=== PATIENT | male | born 1950 | race Caucasian/White ===

== ENCOUNTER → 2016-08-02 | Outpatient (CLI) | payer BC, MEDICARE ==
[~2016-08-02] MED LIST: METO-272 PO; MV M PO; NIAC1CAP PO; OMEG1CAP24 PO; OMEP20CA12 PO; PRD20T PO; RAMI5CAP PO; SULF-222 PO
--- NOTE | 2016-08-02 11:27 | Diagnostic Imaging Report ---
PROCEDURE: MR imaging cervical spine without contrast. TECHNIQUE: Multiplanar, multisequence MR imaging of the cervical spine was performed without contrast. INDICATION: Chronic neck pain extending to right shoulder. FINDINGS: Sagittal reformatted images show good alignment of the vertebral bodies. Body height is well maintained. Marrow signal is normal throughout the cervical spine. The atlantoaxial joint is in good alignment. The C2-C3, C3-C4 and C4-C5 disc spaces appear normal. Facets appear normal. C5-C6 shows mild settling of disc space. There is broad-based disc bulge with mild hypertrophic bony endplate changes. This is causing mild broad-based ventral extradural defect with AP central canal measuring approximately 7 mm. This is causing minimal encroachment upon the lateral recesses and neural foramen. The C6-C7 shows settling of disc space with broad-based disc bulge and hypertrophic endplate changes causing moderate encroachment upon the lateral recess and neural foramen on the right. C7-T1 appears normal. The cervical cord appears normal with no increased T2 signal. Central canal is not dilated. The paraspinal soft tissues are normal. IMPRESSION: Degenerative cervical disc disease with hypertrophic lipping of the endplates. Mild central canal narrowing with moderate encroachment upon the right lateral recess and neural foramen at C6-C7. Dictated by: Dictated on workstation # [id number]
== END ==
LOC: RAD 10:13
PROVIDERS: ATTEND Orthopaedic Surgery
DX: M54.12 Radiculopathy, cervical region (principal)
CPT/HCPCS: 72141

== ENCOUNTER 2017-04-06 10:04 | Outpatient (CLI) | payer MEDICARE, OTHER ==
[~2017-04-06] VITALS: Ht 190.5 cm; Wt 106.6 kg
[~2017-04-06 10:04] MED LIST changes: +ALFU10TA11 PO; +BACL10TA PO; +FLAX1000 PO; +HYDR-3812 PO; +METF500T4 PO; +METO-370 PO
== END 2017-04-06 10:30 ==
LOC: PREOP 10:04
PROVIDERS: ATTEND Orthopaedic Surgery
DX: Z01.818 Encounter for other preprocedural examination (principal); M75.101 Unspecified rotator cuff tear or rupture of right shoulder, not specified as traumatic; G56.21 Lesion of ulnar nerve, right upper limb

== ENCOUNTER 2017-04-08 10:28 | Day surgery (SDC) | payer MEDICARE, OTHER ==
--- NOTE | 2017-04-06 06:20 | HISTORY AND PHYSICAL ---
DATE OF SERVICE: ADMISSION HISTORY AND PHYSICAL DATE OF ADMISSION: 04/08/2017. LAST FOUR SOCIAL SECURITY: 8534 REASON FOR ADMISSION: This will be for outpatient surgery on 04/08/2017 for right shoulder arthroscopy, rotator cuff repair and right cubital tunnel release. HISTORY OF PRESENT ILLNESS: The patient is a 67-year-old right hand dominant gentleman with complaints of right shoulder pain. He reports pain with overhead activities. He reports weakness. He reports that he had arm pain prior to his cervical fusion, which resolved, but he has continued to have shoulder pain. He complains of paresthesias in his ring and small fingers. He underwent an EMG, which showed evidence of a cubital tunnel syndrome. Due to functional impairment and failure to improve with conservative measures, the patient has elected to proceed with surgical intervention. REVIEW OF SYSTEMS: No chest pain. No shortness of breath. No dysuria. PAST MEDICAL HISTORY: Reflux, hypertension, headaches and arthritis. PAST SURGICAL HISTORY: Cholecystectomy, shoulder arthroscopy, heart catheterization, left clavicle, left foot. FAMILY HISTORY: Significant for cardiovascular disease. PRIMARY CARE PROVIDER: Dr. Jose Luis Pace. MEDICATIONS: Omeprazole, ramipril, metoprolol, alfuzosin, metformin, baclofen, hydrocodone, Medrol. ALLERGIES: TOLECTIN. SOCIAL HISTORY: The patient drinks alcohol socially. Denies tobacco use. PHYSICAL EXAMINATION: GENERAL: The patient is well developed, well nourished, in no acute distress. HEENT: Normocephalic, atraumatic. Pupils are equal, round and reactive to light. Oropharynx is clear. NECK: Supple with no lymphadenopathy. LUNGS: Clear to auscultation bilaterally. HEART: Regular rate and rhythm. ABDOMEN: Soft, nontender, nondistended. EXTREMITIES: The right upper extremity demonstrates a positive elbow flexion test. He has a positive Tinel's at the cubital tunnel with decreased sensation in an ulnar distribution. He has a positive Neer's and positive Garcia sign, weakness with abduction and external rotation. Active forward elevation of the right shoulder is 170 degrees, external rotation is 70 degrees, internal rotation is 60 degrees. IMPRESSION: 1. Right shoulder rotator cuff tear. 2. Right cubital tunnel syndrome. PLAN: Procedures: Right shoulder arthroscopy with rotator cuff repair and right cubital tunnel release. The risks, benefits, options, ramifications and recovery have been discussed at length with the patient. He understands and wishes to proceed. Job ID: [id number] DocumentID: [id number] Dictated Date: 03/30/2017 11:29:12 Roofer Metal Date: 03/30/2017 11:55:42 Dictated By: NICOLETTE COELHO MD
[~2017-04-08] VITALS: Ht 190.5 cm; Wt 106.6 kg
[~2017-04-08 10:28] MED LIST changes: +BUPIVACAINE 0.25% 30 ML (SENSORCAINE) VIAL ONE; +MIDAZOLAM 2 MG/2 ML (VERSED) VIAL ONE; +fentaNYL INJECTION 100 MCG/2 ML AMP ONE
--- OUTSIDE RECORDS SUMMARY | 2017-04-08 10:31 | XMS REPORT | Continuity of Care Document ---
Author Author [facility] Organization [facility] Address Unknown Phone Unavailable Allergies Active Description Code Type Severity Reaction Onset Reported/Identified Relationship to Patient Clinical Status Yes tolmetin sodium [id number] Drug Allergy Severe ANAPHYLAXIS 02/04/2013 Medications Problems Date Dx Coded Attending Type Code Diagnosis Diagnosed By 02/04/2013 RONAL SOLANO, LANCE T Ot 698.9 PRURITIC DISORDER NOS 02/04/2013 LANCE VILLEDA MD Ot 785.1 PALPITATIONS 02/04/2013 LANCE VILLEDA MD Ot 995.3 ALLERGY, UNSPECIFIED 02/04/2013 LANCE VILLEDA MD T Ot E000.8 OTHER EXTERNAL CAUSE STATUS 02/04/2013 RONAL SOLANO, LANCE T Ot E849.0 ACCIDENT IN HOME 02/04/2013 LANCE VILLEDA MD T Ot E928.8 ACCIDENT NEC 08/04/2016 LAQUITA SOLANO, NICOLETTE Mancera Ot M54.12 RADICULOPATHY, CERVICAL REGION 08/13/2016 NICOLETTE COELHO MD Ot M54.12 RADICULOPATHY, CERVICAL REGION 08/25/2016 NICOLETTE COELHO MD Ot M54.12 RADICULOPATHY, CERVICAL REGION 09/01/2016 NICOLETTE COELHO MD Ot M54.12 RADICULOPATHY, CERVICAL REGION 09/02/2016 NICOLETTE COELHO MD Ot M54.12 RADICULOPATHY, CERVICAL REGION 09/05/2016 NICOLETTE COELHO MD Ot M54.12 RADICULOPATHY, CERVICAL REGION 03/31/2017 NICOLETTE COELHO MD Ot M54.12 RADICULOPATHY, CERVICAL REGION 03/31/2017 NICOLETTE COELHO MD Ot M54.12 RADICULOPATHY, CERVICAL REGION Procedures Results Encounters ACCT No. Visit Date/Time Discharge Status Pt. Type Provider Facility Loc./Unit Complaint [id number] 04/06/2017 10:04:00 2016 10:30:00 DIS Outpatient LAQUITA SOLANO, NICOLETTE Mancera [facility] PREOP RIGHT SHOULDER TORN ROTATOR CUFF [id number] 08/02/2016 10:13:00 2016 23:59:59 CLS Outpatient LAQUITA SOLANO, NICOLETTE Mancera [facility] RAD CERVICAL RADICULOPATHY [id number] 02/04/2013 01:41:00 2012 03:32:00 DIS Emergency RONAL SOLANO, LANCE [place] [facility] ER ALLERGIC RXN [id number] 04/08/2017 12:15:00 PEN Preadmit [facility]
[2017-04-08 10:32] VITALS: BP 177/82
[2017-04-08] MEDS ORDERED: proPOfol 200 MG/20 ML (DIPRIVAN) VIAL IV ONE (10:44)
[2017-04-08] MEDS ORDERED: LIDOCAINE PF 2% 5 ML (XYLOCAINE) VIAL ONE (10:44)
[2017-04-08] MEDS ORDERED: MIDAZOLAM 2 MG/2 ML (VERSED) VIAL ONE (10:44)
[2017-04-08] MEDS ORDERED: ONDANSETRON 4 MG/2 ML (SDV) Z0FRAN ONE (10:45)
[2017-04-08] MEDS ORDERED: ROCURONIUM 50 MG/5 ML (ZEMURON) VIAL IV ONE (10:45)
[2017-04-08] MEDS ORDERED: oxyCODONE/APAP 5/325MG (PERCOCET 5) TABLET PO PRN (10:45)
[2017-04-08] MEDS ORDERED: GLYCOPYRROLATE 0.2 MG/ML (ROBINUL) 2 ML VIAL ONE (10:45)
[2017-04-08] MEDS ORDERED: NEOSTIGMINE (BLOXIVERZ ) 1 MG/1ML 10 ML VIAL ONE (10:45)
[2017-04-08] MEDS ORDERED: SEVOFLURANE (ULTANE) 15 ML INHAL SOLN ONE ×3 (10:45→12:23)
[2017-04-08] MEDS: LACTATED RINGERS 1,000 ML IV PRN ×2 (10:48→12:02)
[2017-04-08] MEDS ORDERED: morphine PF (DURAMORPH) 10 MG/10 ML AMP ONE (10:49)
[2017-04-08] MEDS ORDERED: ceFAZolin 1,000 MG (ANCEF) VIAL ONE (10:50)
[2017-04-08] MEDS ORDERED: NS (IVPB) 50 ML ONE (10:51)
[2017-04-08] MEDS ORDERED: ceFAZolin 1 GM/NS 50 ML IVPB IV ONE ×2 (11:00)
--- NOTE | 2017-04-08 11:04 | Progress Note-Pre Operative ---
Pre-Operative Progress Note H&P Reviewed The H&P was reviewed, patient examined and no changes noted. Date Seen by Provider: Apr 08, 2017 Time Seen by Provider: 11:03 Date H&P Reviewed: Apr 08, 2017 Time H&P Reviewed: 11:03 Pre-Operative Diagnosis: right rotator cuff tear and right cubital tunnel syndrome NICOLETTE COELHO MD Apr 08, 2017 11:04
--- NOTE | 2017-04-08 11:07 | Progress Note-Post Operative ---
Post-Operative Progess Note Surgeon (s)/Cellar Worker (s) Surgeon NICOLETTE COELHO MD Cellar Worker: joellen Huff Pre-Operative Diagnosis right rotator cuff tear and right cubital tunnel syndrome Post-Operative Diagnosis right rotator cuff and SLAP tears right cubital tunnel syndrome Procedure & Operative Findings Date of Procedure 04/08/17 Procedure Performed/Findings right shoulder arthroscopic acromioplasty, biceps tenotomy and open rotator cuff repair right cubital tunnel release Anesthesia Type GETA plus interscalen Estimated Blood Loss Estimated blood loss (mL): minimal Specimens/Packing Specimens Removed none Packing: none NICOLETTE COELHO MD Apr 08, 2017 11:06
--- NOTE | 2017-04-08 11:21 | Anesthesia-Peripheral Nerve Bl ---
Procedure Start/Stop Time Date of Procedure: Apr 08, 2017 Start Time: 11:00 Stop Time: 11:16 Peripheral Nerve Block Peripheral Nerve Blockade Risk/Benefits/Alternatives discussed, including IV injection leading to complications or seizures, nerve irritation or damage, pneumothorax, total spinal anesthesia, injection, and/or bleeding. Approach: ISB Side Confirmed: RIGHT Indication: Req Pain Mgmt by Surgeon Specifically requested for management of pain by: Dr. Ro Patient Condition Patient Condition: Sedate/contact maintained Procedure Prepartation: Chlorhexidine Position: Sitting [place]: Pencil-tipped (22 G 4" blunt stimulator needle), Short-bevel Technique: Ultrasound Sedation Given: Fentanyl (100mcg), Midazolam (2 mg) Injectate: ropivacaine Concentration %: 0.5 Volume (ml): 30 Epinephrine used: No Narrative Injection was made incrementally with constant monitoring. Aspiration every (mls): 5 Blood Aspirated: No Pain on injection noted: No Normal Resistance on injection: Yes Events Events: None:easy well tolerated Sucess: Full evaluation-pending Patient Conditon Post Peripheral Nerve Block Post Peripheral Nerve Block Vital Signs: Blood Pressure: Systolic Diastolic Heart Rate NERIS COOPER CRNA Apr 08, 2017 11:21
[2017-04-08] MEDS ORDERED: ATROPINE INJ 0.4 MG/ML SDV ONE (11:30)
[2017-04-08] MEDS ORDERED: HYDROmorphone (DILAUDID) 2 MG/ML VIAL IVP PRN (13:00)
[2017-04-08] MEDS ORDERED: morphine INJ 10 MG/ML 1ML (SYR OR VIAL) IVP PRN (13:00)
[2017-04-08] MEDS ORDERED: ONDANSETRON 4 MG/2 ML (SDV) Z0FRAN IVP PRN (13:00)
[2017-04-08 13:40] VITALS: BP 126/61
[2017-04-08 14:10] VITALS: BP 133/69
[2017-04-08] MEDS ORDERED: OXYC-197 PO (14:23)
[2017-04-08 14:45] VITALS: BP 138/73
[2017-04-08 15:13] VITALS: BP 138/73
--- NOTE | 2017-04-08 21:41 | OPERATIVE REPORT ---
DATE OF SERVICE: 04/08/2017 PREOPERATIVE DIAGNOSES: 1. Right shoulder rotator cuff tear. 2. Right shoulder SLAP tear. 3. Right cubital tunnel syndrome. POSTOPERATIVE DIAGNOSES: 1. Right shoulder rotator cuff tear. 2. Right shoulder SLAP tear. 3. Right cubital tunnel syndrome. PROCEDURES: 1. Right shoulder arthroscopic biceps tenotomy. 2. Right shoulder arthroscopic acromioplasty. 3. Right shoulder open rotator cuff repair. 4. Right cubital tunnel release. SURGEON: Hawk Coelho M.D. ENGINEERING MODEL MAKER: SARITHA Mcrae, who assisted throughout the procedure and closed the incisions. ANESTHESIA: General endotracheal plus interscalene nerve block by Dr. Adair. TOURNIQUET TIME: 7 minutes at 250 mmHg. ESTIMATED BLOOD LOSS: Minimal. DRAINS: None. COMPLICATIONS: None. POSTOPERATIVE PLAN: Sling wear and passive range of motion for 4 weeks. The patient was transferred to the recovery room awake and in stable condition. STATEMENT OF MEDICAL NECESSITY: The patient is a 67-year-old right hand dominant gentleman with complaints of right shoulder pain and weakness. An MRI confirmed a full-thickness rotator cuff tear and a SLAP tear. In addition, the patient had paresthesias in his ring and small fingers and EMG, which revealed evidence of cubital tunnel syndrome. Due to functional impairment and failure to improve with conservative measures, the patient elected to proceed with surgical intervention. Examination under anesthesia of the right shoulder demonstrated forward elevation of 160 degrees, external rotation of 40 degrees, internal rotation of 40 degrees. Arthroscopic findings demonstrated a full-thickness supraspinatus tear 1 x 1 cm in size. In addition, there was a type 2 SLAP tear. The subacromial space demonstrated moderate bursitis with slope in the anterolateral acromion. There is no significant humeral head articular wear. There is grade II chondral softening in the central portion of the glenoid. The remainder of the labrum was intact. DESCRIPTION OF PROCEDURE: After risks and benefits of the procedure were discussed and questions were answered, an informed consent was signed and placed on the chart. The operative site was confirmed in the preoperative holding area initialed by the surgeon. The patient was then transferred to the operating room and after adequate levels of general endotracheal and regional anesthetic were obtained, a timeout was called confirming the operative site. Examination under anesthesia was performed with the above findings noted. The right shoulder and upper extremity were then prepped and draped in the usual sterile fashion. The shoulder joint was injected with 20 mL of fluid as well as subacromial space. Standard posterior portal was placed. Diagnostic arthroscopy was carried out with the above findings noted. An anterior portal was created under direct visualization and in the interval between the biceps, subscapularis and glenoid. The biceps anchor was released and the stump was debrided with shaver. The scope was then redirected into the subacromial space. The lateral portal was created and bursectomy was performed and the acromion was planed to a flat type 1 acromion. The lateral portal was then extended. The deltoid was split in line with its fibers leaving attached to the acromion. A single corkscrew type anchor was placed and a modified Hoang-Fadi repair was performed and excellent repair was performed of the rotator cuff with no undue tension noted at the repair site. The shoulder was copiously irrigated. The portal sites were closed with 4 nylon in a simple interrupted fashion. The deltoid was repaired in a cigm-lg-fuma fashion using #2 Tevdek in a dyqunz-pv-chehr interrupted fashion. The wound was further irrigated. A 2-0 Vicryl was used to reapproximate the subcutaneous tissue. Skin was closed with 4 nylon in a running alternating horizontal mattress fashion. A sterile tourniquet was then applied and was inflated to 250 mmHg. An L-shaped incision was made posterior to the medial epicondyle. The ulnar nerve was identified proximal to the medial epicondyle and dissected free 2.9 cm proximally. There was diffuse swelling at the cubital tunnel of the nerve, but the nerve was intact. It was carefully protected throughout the procedure. The nerve was dissected through the cubital tunnel and into the flexor/pronator mass. The elbow was taken through a range of motion with no subluxation of the nerve noted. The tourniquet was deflated. Pressure was used for hemostasis. The wound was copiously irrigated. The subcutaneous tissue was closed with 3-0 Vicryl in a simple interrupted fashion and the skin was closed with 4-0 nylon in a running alternating horizontal mattress fashion. The incision was infiltrated with plain Marcaine. A soft dressing and sling were applied. The patient was transferred to the recovery room, awake and in stable condition. Job ID: [id number] DocumentID: [id number] Dictated Date: 04/08/2017 12:44:25 Director Of Field Coordination Date: 04/08/2017 21:41:14 Dictated By: HAWK COELHO MD
== END 2017-04-08 15:13 | disposition home or self-care (01) ==
LOC: SDC 10:28
PROVIDERS: ATTEND Orthopaedic Surgery
DX: M75.101 Unspecified rotator cuff tear or rupture of right shoulder, not specified as traumatic (principal); S43.431A Superior glenoid labrum lesion of right shoulder, initial encounter; G56.21 Lesion of ulnar nerve, right upper limb; Z11.2 Encounter for screening for other bacterial diseases; E11.40 Type 2 diabetes mellitus with diabetic neuropathy, unspecified; K21.9 Gastro-esophageal reflux disease without esophagitis; I10 Essential (primary) hypertension; Z79.899 Other long term (current) drug therapy; Z79.84 Long term (current) use of oral hypoglycemic drugs; Z79.891 Long term (current) use of opiate analgesic; Z88.6 Allergy status to analgesic agent
CPT/HCPCS: 82962; 87081

== ENCOUNTER → 2017-07-08 | Outpatient (RCR) | payer MEDICARE, OTHER ==
[~2017-07-08] MED LIST changes: +ACHD5005 PO; -BUPIVACAINE 0.25% 30 ML (SENSORCAINE) VIAL ONE; -HYDR-3812 PO; -MIDAZOLAM 2 MG/2 ML (VERSED) VIAL ONE; +OXYC-197 PO; -fentaNYL INJECTION 100 MCG/2 ML AMP ONE
== END | disposition home or self-care (01) ==
PROVIDERS: ATTEND Orthopaedic Surgery
DX: M75.121 Complete rotator cuff tear or rupture of right shoulder, not specified as traumatic (principal)

== ENCOUNTER → 2017-10-02 | Outpatient (CLI) | payer MEDICARE, OTHER ==
[~2017-10-02] MED LIST changes: +FLUT16SP22 NS; +GABA-486 PO; +IBUP-2055 PO; -METF500T4 PO; +METF500T5 PO; +OXYC-465 PO; +OXYC-471; +OXYC-471 PO; +TRAM50TA2 PO
--- NOTE | 2017-10-02 14:30 | Diagnostic Imaging Report ---
EXAMINATION: Abdomen flat and upright at 1:29 p.m. INDICATION: Left upper quadrant pain. COMPARISON: There are no prior studies available for comparison. FINDINGS: There is gas in both the large and small bowel in a nonspecific fashion. There is no sign of a bowel obstruction. There does appear to be at least a moderate amount of fecal material in the ascending colon. There is no mass, organomegaly, or pathological calcification evident. Surgical clips are evident within the right upper quadrant consistent with prior cholecystectomy. The osseous structures are intact. There is blunting of the left costophrenic angle. This may well be chronic in nature. If previous studies are available, they would be helpful for comparison. IMPRESSION: 1. The bowel gas pattern is nonspecific. There is no acute abnormality identified. 2. If clinical concern regarding an underlying abnormality persists, then CT of the abdomen and pelvis would be recommended for further study. Dictated by: Dictated on workstation # [id number]
== END ==
LOC: RAD 12:56
PROVIDERS: ATTEND Family Medicine
DX: R10.11 Right upper quadrant pain (principal); E11.9 Type 2 diabetes mellitus without complications; I10 Essential (primary) hypertension; R10.32 Left lower quadrant pain
CPT/HCPCS: 74019

== ENCOUNTER → 2017-10-20 | Outpatient (CLI) | payer MEDICARE, OTHER ==
--- NOTE | 2017-10-20 10:31 | Diagnostic Imaging Report ---
INDICATION: Right arm pain and swelling. Grayscale and color Doppler evaluation of right upper extremity deep veins reveal no intraluminal filling defect. There is normal venous flow. There is normal compressibility and response to augmentation. IMPRESSION: No ultrasound evidence of right upper extremity deep venous thrombosis. Dictated by: Dictated on workstation # [id number]
== END ==
LOC: RAD 09:44
PROVIDERS: ATTEND Orthopaedic Surgery
DX: R22.31 Localized swelling, mass and lump, right upper limb (principal)

== ENCOUNTER 2017-10-23 13:07 | Outpatient (RCR) | payer MEDICARE, OTHER ==
[~2017-10-23 13:07] MED LIST changes: -FLUT16SP22 NS; -GABA-486 PO; -IBUP-2055 PO; -OXYC-465 PO; -OXYC-471; -OXYC-471 PO; -TRAM50TA2 PO
[2017-10-23] MEDS ORDERED: TRAM50TA2 PO (23:32)
[2017-10-23] MEDS ORDERED: OXYC-471 (23:32)
[2017-10-23] MEDS ORDERED: GABA-486 PO (23:32)
[2017-10-24] MEDS ORDERED: FLUT16SP22 NS (11:46)
[2017-10-24] MEDS ORDERED: IBUP-2055 PO (11:47)
[2017-10-24] MEDS ORDERED: OXYC-471 PO (11:47)
[2017-10-26] MEDS ORDERED: OXYC-465 PO (08:21)
[2017-10-26] MEDS ORDERED: TRAM50TA2 PO (08:21)
== END 2017-11-12 11:16 | disposition home or self-care (01) ==
PROVIDERS: ATTEND Orthopaedic Surgery
DX: M75.01 Adhesive capsulitis of right shoulder (principal)

== ENCOUNTER 2017-10-23 23:16 | Observation (INO) | payer MEDICARE, OTHER ==
[~2017-10-23] VITALS: Ht 190.5 cm; Wt 109.1 kg
--- OUTSIDE RECORDS SUMMARY | 2017-10-23 23:25 | XMS REPORT | Continuity of Care Document ---
Author Author [facility] Organization [facility] Address Unknown Phone Unavailable Allergies Active Description Code Type Severity Reaction Onset Reported/Identified Relationship to Patient Clinical Status Yes tolmetin sodium [id number] Drug Allergy Severe ANAPHYLAXIS 02/04/2013 Medications There is no data. Problems Date Dx Coded Attending Type Code Diagnosis Diagnosed By LAQUITA SOLANO, NICOLETTE Mancera Ot M75.121 COMPLETE ROTATR-CUFF TEAR/RUPTR OF R ANA 02/04/2013 RONAL SOLANO, LANCE [place]oul[place] Ot 698.9 PRURITIC DISORDER NOS 02/04/2013 LANCE VILLEDA MD Ot 785.1 PALPITATIONS 02/04/2013 RONAL SOLANO, LANCE [place] Ot 995.3 ALLERGY, UNSPECIFIED 02/04/2013 LANCE VILLEDA MD Ot E000.8 OTHER EXTERNAL CAUSE STATUS 02/04/2013 RONAL SOLANO, LANCE [place] Ot E849.0 ACCIDENT IN HOME 02/04/2013 LANCE VILLEDA MD Ot E928.8 ACCIDENT NEC 08/04/2016 LAQUITA SOLANO, [...] COELHO MD Ot M54.12 RADICULOPATHY, CERVICAL REGION 04/06/2017 NICOLETTE COELHO MD, Ot G56.21 LESION OF ULNAR NERVE, RIGHT UPPER LIMB 04/06/2017 NICOLETTE COELHO MD, Ot M75.101 UNSP ROTATR-CUFF TEAR/RUPTR OF RIGHT ANA 04/06/2017 NICOLETTE COELHO MD, Ot Z01.818 ENCOUNTER FOR OTHER PREPROCEDURAL EXAMIN 04/08/2017 NICOLETTE COELHO MD, Ot E11.40 TYPE 2 DIABETES MELLITUS WITH DIABETIC N 04/08/2017 NICOLETTE COELHO MD, Ot G56.21 LESION OF ULNAR NERVE, RIGHT UPPER LIMB 04/08/2017 NICOLETTE COELHO MD, Ot I10 ESSENTIAL (PRIMARY) HYPERTENSION 04/08/2017 NICOLETTE COELHO MD, Ot K21.9 GASTRO-ESOPHAGEAL REFLUX DISEASE WITHOUT 04/08/2017 NICOLETTE COELHO MD, Ot M75.101 UNSP ROTATR-CUFF TEAR/RUPTR OF RIGHT ANA 04/08/2017 NICOLETTE COELHO MD, Ot S43.431A SUPERIOR GLENOID LABRUM LESION OF RIGHT 04/08/2017 NICOLETTE COELHO MD, Ot Z11.2 ENCOUNTER FOR SCREENING FOR OTHER BACTER 04/08/2017 NICOLETTE COELHO MD, Ot Z79.84 FDC (CURRENT) USE OF ORAL HYPOGLYC 04/08/2017 NICOLETTE COELHO MD, Ot Z79.891 FDC (CURRENT) USE OF OPIATE ANALGE 04/08/2017 NICOLETTE COELHO MD, Ot Z79.899 OTHER FDC (CURRENT) DRUG THERAPY 04/08/2017 NICOLETTE COELHO MD, Ot Z88.6 ALLERGY STATUS TO ANALGESIC AGENT STATUS 04/09/2017 NICOLETTE COELHO MD, Ot E11.40 TYPE 2 DIABETES MELLITUS WITH DIABETIC N 04/09/2017 NICOLETTE COELHO MD, Ot G56.21 LESION OF ULNAR NERVE, RIGHT UPPER LIMB 04/09/2017 NICOLETTE COELHO MD, Ot I10 ESSENTIAL (PRIMARY) HYPERTENSION 04/09/2017 NICOLETTE COELHO MD, Ot K21.9 GASTRO-ESOPHAGEAL REFLUX DISEASE WITHOUT 04/09/2017 NICOLETTE COELHO MD, Ot M75.101 UNSP ROTATR-CUFF TEAR/RUPTR OF RIGHT ANA 04/09/2017 NICOLETTE COELHO MD, Ot S43.431A SUPERIOR GLENOID LABRUM LESION OF RIGHT 04/09/2017 NICOLETTE COELHO MD, Ot Z11.2 ENCOUNTER FOR SCREENING FOR OTHER BACTER 04/09/2017 NICOLETTE COELHO MD, Ot Z79.84 FDC (CURRENT) USE OF ORAL HYPOGLYC 04/09/2017 NICOLETTE COELHO MD, Ot Z79.891 FDC (CURRENT) USE OF OPIATE ANALGE 04/09/2017 NICOLETTE COELHO MD, Ot Z79.899 OTHER [facility] (CURRENT) DRUG THERAPY 04/09/2017 NICOLETTE COELHO MD, Ot Z88.6 ALLERGY STATUS TO ANALGESIC AGENT STATUS 04/10/2017 NICOLETTE COELHO MD, Ot M75.121 COMPLETE ROTATR-CUFF TEAR/RUPTR OF R ANA 04/22/2017 NICOLETTE COELHO MD, Ot E11.40 TYPE 2 DIABETES MELLITUS WITH DIABETIC N 04/22/2017 NICOLETTE COELHO MD, Ot G56.21 LESION OF ULNAR NERVE, RIGHT UPPER LIMB 04/22/2017 NICOLETTE COELHO MD Ot I10 ESSENTIAL (PRIMARY) HYPERTENSION 04/22/2017 NICOLETTE COELHO MD, Ot K21.9 GASTRO-ESOPHAGEAL REFLUX DISEASE WITHOUT 04/22/2017 NICOLETTE COELHO MD Ot M75.101 UNSP ROTATR-CUFF TEAR/RUPTR OF RIGHT ANA 04/22/2017 NICOLETTE COELHO MD, Ot S43.431A SUPERIOR GLENOID LABRUM LESION OF RIGHT 04/22/2017 NICOLETTE COELHO MD, Ot Z11.2 ENCOUNTER FOR SCREENING FOR OTHER BACTER 04/22/2017 NICOLETTE COELHO MD, Ot Z79.84 TOOL DESIGN DRAFTER (CURRENT) USE OF ORAL HYPOGLYC 04/22/2017 NICOLETTE COELHO MD, Ot Z79.891 FDC (CURRENT) USE OF OPIATE ANALGE 04/22/2017 NICOLETTE COELHO MD, Ot Z79.899 OTHER TOOL DESIGN DRAFTER (CURRENT) DRUG THERAPY 04/22/2017 NICOLETTE COELHO MD, Ot Z88.6 ALLERGY STATUS TO ANALGESIC AGENT STATUS 05/05/2017 NICOLETTE COELHO MD Ot M75.121 COMPLETE ROTATR-CUFF TEAR/RUPTR OF R ANA 07/03/2017 NICOLETTE COELHO MD Ot M75.121 COMPLETE ROTATR-CUFF TEAR/RUPTR OF R ANA 07/08/2017 NICOLETTE COELHO MD, Ot M75.121 COMPLETE ROTATR-CUFF TEAR/RUPTR OF R ANA 07/10/2017 NICOLETTE COELHO MD, Ot M54.12 RADICULOPATHY, CERVICAL REGION 07/10/2017 NICOLETTE COELHO MD Ot M75.121 COMPLETE ROTATR-CUFF TEAR/RUPTR OF R ANA 07/10/2017 NICOLETTE COELHO MD Ot M75.121 COMPLETE ROTATR-CUFF TEAR/RUPTR OF R ANA 07/10/2017 NICOLETTE COELHO MD Ot M75.121 COMPLETE ROTATR-CUFF TEAR/RUPTR OF R ANA 07/17/2017 NICOLETTE COELHO MD, Ot M75.121 COMPLETE ROTATR-CUFF TEAR/RUPTR OF R ANA 07/17/2017 NICOLETTE COELHO MD, Ot M54.12 RADICULOPATHY, CERVICAL REGION 07/17/2017 NICOLETTE COELHO MD Ot M75.121 COMPLETE ROTATR-CUFF TEAR/RUPTR OF R ANA 09/01/2017 NICOLETTE COELHO MD, Ot M75.121 COMPLETE ROTATR-CUFF TEAR/RUPTR OF R ANA 10/05/2017 FOX MENJIAVR MD Ot E11.9 TYPE 2 DIABETES MELLITUS WITHOUT COMPLIC 10/05/2017 FOX MENJIVAR MD, Ot I10 ESSENTIAL (PRIMARY) HYPERTENSION 10/05/2017 FOX MENJIVAR MD Ot R10.11 RIGHT UPPER QUADRANT PAIN 10/05/2017 FOX MENJIVAR MD Ot R10.32 LEFT LOWER QUADRANT PAIN 10/13/2017 NICOLETTE COELHO MD, Ot M75.01 ADHESIVE CAPSULITIS OF RIGHT SHOULDER Procedures There is no data. Results Test Result Range Lipid Panel - 05/09/16 11:17 C/HDL 5.7 3.7-6.7 Cholesterol 164 mg/dL 100-240 HDL 29 mg/dL 30-85 LDL-Calculated 78 mg/dL 0-100 Trig 283 mg/dL 35-160 VLDL 57 mg/dL 0-42 Hemoglobin A1C - 06/23/16 10:00 % A1C 9.70 % 5.40-6.60 AvGlu 267 mg/dL 70-110 Comprehensive Metabolic Panel - 09/15/16 16:10 Albumin 4.3 g/dL 3.6-5.1 ALP 74 U/L 35-130 ALT 26 U/L 6-45 Anion Gap 16 6-14 AST 13 U/L 2-40 BUN 14 mg/dL 5-25 Calcium 9.7 mg/dL 8.3-10.4 Chloride 101 mmol/L 95-114 CO2 24 mEq/L 22-33 Creat 0.85 mg/dL 0.50-1.50 eGFR 90 mL/min/1.73m2 >59 Globulin 2.6 g/dL 2.3-3.5 Glucose 253 mg/dL 70-110 Osmo 291 280-295 Potassium 4.1 mmol/L 3.5-5.3 Sodium 137 mmol/L 134-148 TBil 0.6 mg/dL 0.2-1.2 TP 6.9 g/dL 6.0-8.3 Capillary blood glucose measurement by glucometer (mass/volume) - 04/08/17 10: 38 Capillary blood glucose measurement by glucometer (mass/volume) 136 mg/dL 70-110 Methicillin resistant Staphylococcus aureus (MRSA) screening culture - 10:42 Methicillin resistant Staphylococcus aureus (MRSA) screening culture NEG NRG Encounters ACCT No. Visit Date/Time Discharge Status Pt. Type Provider Facility Loc./Unit Complaint [id number] 10/16/2017 11:00:00 10/16/2017 23:59:59 CLS Outpatient NICOLETTE COELHO MD [facility] REHAB R SHOULDER SCOPE; ADHESIVE CAPSULITIS [id number] 10/02/2017 12:56:00 10/02/2017 23:59:59 CLS Outpatient OTTO SOLANO, FOX Perez [facility] RAD LUQ PAIN [id number] 07/31/2017 14:53:00 09/01/2017 09:43:00 DIS Outpatient NICOLETTE COELHO MD [facility] REHAB R SHOULDER SCOPE WITH OPEN RCR [id number] 07/08/2017 14:43:00 07/08/2017 00:01:00 DIS Outpatient NICOLETTE COELHO MD [facility] REHAB R SHOULDER SCOPE WITH OPEN RCR [id number] 04/08/2017 10:28:00 04/08/2017 15:13:00 DIS Out[facility] ROTATOR CUFF [id number] 04/06/2017 10:04:00 04/06/2017 10:30:00 DIS Outpatient NICOLETTE COELHO MD [facility] PREOP RIGHT SHOULDER TORN ROTATOR CUFF [id number] 08/02/2016 10:13:00 08/02/2016 23:59:59 CLS Outpatient NICOLETTE COELHO MD [facility] RAD CERVICAL RADICULOPATHY [id number] 02/04/2013 01:41:00 02/04/2013 03:32:00 DIS Emergency RONAL SOLANO, LANCE [place] [facility] ER ALLERGIC RXN [id number] 09/15/2016 16:10:00 09/15/2016 23:59:00 DIS Outpatient Jimbo Pace [id number] 06/23/2016 10:16:00 06/23/2016 23:59:00 DIS Outpatient Jimbo Pace [id number] 05/09/2016 11:11:00 05/09/2016 23:59:00 DIS Outpatient Jimbo Pace
[2017-10-23] MEDS ORDERED: GABA-486 PO (23:32)
[2017-10-23] MEDS ORDERED: OXYC-471 (23:32)
[2017-10-23] MEDS ORDERED: TRAM50TA2 PO (23:32)
[2017-10-23] MEDS ORDERED: fentaNYL INJECTION 100 MCG/2 ML AMP IVP ONE (23:45)
[2017-10-23 23:46] LABS: BASOPHILS % (AUTO) 0 % (0-10); EOSINOPHILS # (AUTO) 0.4 10^3/uL (0.0-0.3); EOSINOPHILS % (AUTO) 4 % (0-10); HEMATOCRIT 34 % (40-54); LYMPHOCYTES # (AUTO) 1.1 X 10^3 (1.0-4.0); LYMPHOCYTES % (AUTO) 11 % (12-44); MEAN CORPUSCULAR HEMOGLOBIN 24 PG (25-34); MEAN CORPUSCULAR HGB CONC 33 G/DL (32-36); MEAN CORPUSCULAR VOLUME 74 FL (80-99); MEAN PLATELET VOLUME 9.6 FL (7.4-10.4); MONOCYTES % (AUTO) 10 % (0-12); NEUTROPHILS # (AUTO) 7.7 X 10^3 (1.8-7.8); NEUTROPHILS % (AUTO) 76 % (42-75); PLATELET COUNT 404 10^3/uL (130-400); RED BLOOD COUNT 4.55 10^6/uL (4.35-5.85); WHITE BLOOD COUNT 10.1 10^3/uL (4.3-11.0)
[2017-10-23] MEDS: NITROGLYCERIN 0.4 MG SL TABS BTL 25'S SL PRN (23:46)
[2017-10-23 23:56] LABS: INR 1.1 (0.8-1.4); PROTHROMBIN TIME PATIENT 14.3 SEC (12.2-14.7)
[2017-10-24] VITALS (19 sets, daily range): BP systolic 125–174; BP diastolic 66–87
[2017-10-24 00:05] LABS: ALANINE AMINOTRANSFERASE 20 U/L (0-55); ALKALINE PHOSPHATASE 84 U/L (40-136); BILIRUBIN,TOTAL 0.9 MG/DL (0.1-1.0); BUN/CREATININE RATIO 18; CALCIUM 9.6 MG/DL (8.5-10.1); CARBON DIOXIDE 22 MMOL/L (21-32); CHLORIDE 105 MMOL/L (98-107); CREATININE SERUM 0.76 MG/DL (0.60-1.30); GFR ESTIMATED > 60; GLUCOSE 133 MG/DL (70-105); MAGNESIUM 2.1 MG/DL (1.8-2.4); POTASSIUM 4.1 MMOL/L (3.6-5.0); SODIUM 138 MMOL/L (135-145); TOTAL PROTEIN 7.1 GM/DL (6.4-8.2)
[2017-10-24 00:12] LABS: MYOGLOBIN SERUM 34.7 NG/ML (10.0-92.0)
[2017-10-24] MEDS ORDERED: morphine INJ 10 MG/ML 1ML (SYR OR VIAL) IVP ONE ×2 (00:15→02:15)
[2017-10-24] MEDS: NITROGLYCERIN 0.4 MG SL TABS BTL 25'S SL PRN (00:21)
[2017-10-24] MEDS ORDERED: RT-ALBUTEROL/IPRATROPIUM 3 ML (DUONEB) VIAL INH ONE (02:15)
[2017-10-24] MEDS ORDERED: HYDROmorphone 1 MG/ML (DILAUDID) 1 ML SYRINGE IV STA (02:58)
[2017-10-24] MEDS ORDERED: IOHEXOL 350 MG/ML 150 ML (OMNIPAQUE 350) VIAL IV ONE (03:15)
[2017-10-24] MEDS ORDERED: NS 250 ML (IVPB) BAG IV ONE (03:15)
[2017-10-24] MEDS ORDERED: PIPERACILLIN SODIUM/TAZOBACTAM 4.5 GM in D5W 100 ML IVPB 100 ML IV ONE (04:15)
[2017-10-24] MEDS ORDERED: PIPERACILLIN/TAZOBACTAM 3.375 GM in D5W 100 ML IVPB 100 ML IV ONE (04:30)
--- OUTSIDE RECORDS SUMMARY | 2017-10-24 04:35 | XMS REPORT | Continuity of Care Document ---
Author Author [facility] Organization [facility] Address Unknown Phone Unavailable Allergies Active Description Code Type Severity Reaction Onset Reported/Identified Relationship to Patient Clinical Status Yes tolmetin sodium [id number] Drug Allergy Severe ANAPHYLAXIS 02/04/2013 Medications There [...] BACTER 04/08/2017 NICOLETTE COELHO MD, Ot Z79.84 [facility] (CURRENT) USE OF ORAL HYPOGLYC 04/08/2017 NICOLETTE COELHO MD, Ot Z79.891 [facility] (CURRENT) USE OF OPIATE ANALGE 04/08/2017 NICOLETTE COELHO MD, Ot Z79.899 OTHER [facility] (CURRENT) DRUG THERAPY 04/08/2017 NICOLETTE COELHO MD, [...] BACTER 04/09/2017 NICOLETTE COELHO MD, Ot Z79.84 [facility] (CURRENT) USE OF ORAL HYPOGLYC 04/09/2017 NICOLETTE COELHO MD, Ot Z79.891 [facility] (CURRENT) USE OF OPIATE ANALGE 04/09/2017 NICOLETTE COELHO MD, Ot Z79.899 OTHER [facility] (CURRENT) DRUG THERAPY 04/09/2017 NICOLETTE COELHO MD, [...] UNSP ROTATR-CUFF TEAR/RUPTR OF RIGHT ANA 04/22/2017 INCOLETTE COELHO MD, Ot S43.431A SUPERIOR GLENOID LABRUM LESION OF RIGHT 04/22/2017 NICOLETTE COELHO MD, Ot Z11.2 ENCOUNTER FOR SCREENING FOR OTHER BACTER 04/22/2017 NICOLETTE COELHO MD, Ot Z79.84 FITTING ROOM CHECKER (CURRENT) USE OF ORAL HYPOGLYC 04/22/2017 NICOLETTE COELHO MD, Ot Z79.891 [facility] (CURRENT) USE OF OPIATE ANALGE 04/22/2017 NICOLETTE COELHO MD, Ot Z79.899 OTHER FITTING ROOM CHECKER (CURRENT) DRUG THERAPY 04/22/2017 NICOLETTE COELHO MD, [...] ROTATR-CUFF TEAR/RUPTR OF R ANA 10/05/2017 FOX MENJIVAR MD Ot E11.9 TYPE 2 DIABETES MELLITUS [...] Status Pt. Type Provider Facility Loc./Unit Complaint [id number] 10/16/2017 11:00:00 10/16/2017 23:59:59 CLS Outpatient NICOLETTE COELHO MD [facility] REHAB R SHOULDER SCOPE; ADHESIVE CAPSULITIS [id number] 10/02/2017 12:56:00 10/02/2017 23:59:59 CLS Outpatient OTTO SOLANO, FOX Perez [facility] RAD LUQ PAIN [id number] 07/31/2017 14:53:00 09/01/2017 09:43:00 DIS Outpatient NICOLETTE COELHO MD [facility] REHAB R SHOULDER SCOPE WITH OPEN RCR [id number] 07/08/2017 14:43:00 07/08/2017 00:01:00 DIS Outpatient NICOLETTE COELHO MD [facility] REHAB R SHOULDER SCOPE WITH OPEN RCR [id number] 04/08/2017 10:28:00 04/08/2017 15:13:00 DIS [facility] ROTATOR CUFF [id number] 04/06/2017 10:04:00 04/06/2017 10:30:00 DIS Outpatient NICOLETTE COELHO MD [facility] PREOP RIGHT SHOULDER TORN ROTATOR CUFF [id number] 08/02/2016 10:13:00 08/02/2016 23:59:59 CLS Outpatient NICOLETTE COELHO MD [facility] RAD CERVICAL RADICULOPATHY [id number] 02/04/2013 01:41:00 02/04/2013 03:32:00 DIS Emergency RONAL SOLANO, LANCE Moulton [facility] ER ALLERGIC [id number] 09/15/2016 16:10:00 09/15/2016 23:59:00 DIS Outpatient Jimbo Pace [id number] 06/23/2016 10:16:00 06/23/2016 23:59:00 DIS Outpatient Jimbo Pace [id number] 05/09/2016 11:11:00 05/09/2016 23:59:00 DIS Outpatient Jimbo Pace
--- NOTE | 2017-10-24 04:46 | ED Chest Pain ---
General Chief Complaint: Chest Wall/Rib Pain Stated Complaint: R PNEUMOTHORAX, L PLEURAL EFFUSION Nursing Triage Note: left chest rib pain/soa x3 weeks worse x3 days Nursing Sepsis Screen: No Definite Risk Source: patient, old records Exam Limitations: no limitations History of Present Illness Date Seen by Provider: Oct 24, 2017 Time Seen by Provider: 23:30 Initial Comments Patient presents to the emergency room with complaints of pain in the left chest along the costal margin and dyspnea, especially dyspnea with exertion. He has pain with inspiration. Symptoms have been progressively worsening for weeks. Patient had a right shoulder arthroscopically about 3 weeks ago. Patient first recalls having problems after having spine surgery last summer. Patient has had persistent problems with swelling and pain in the right arm for a couple of months and fairly intense pain in the right shoulder. Patient's cattle killer is Dr. Villalobos who reportedly performed a stress test on him about a year and a half ago. No ischemia was detected. Allergies and Home Medications Allergies Coded Allergies: tolmetin sodium (Unverified Allergy, Severe, ANAPHYLAXIS, 02/04/13) Home Medications Alfuzosin HCl 10 Mg Tab.er.24h, 10 MG PO DAILY@1700, (Reported) Baclofen 10 Mg Tablet, 10 MG PO BID, (Reported) Flaxseed Oil 1,000 Mg Capsule, 1,000 MG PO TID, (Reported) Metformin HCl 500 Mg Tablet, 500 MG PO BID, (Reported) Metoprolol Succinate 50 Mg Tab.er.24h, 50 MG PO DAILY, (Reported) Omeprazole 20 Mg Capsule.dr, 20 MG PO DAILY, (Reported) Oxycodone HCl/Acetaminophen 1 Each Tablet, 1-2 TAB PO Q4H Prescribed by: MOISÉS KING on 04/08/17 1423 Ramipril 5 Mg Capsule, 5 MG PO DAILY, (Reported) Patient Home Medication List Home Medication List Reviewed: Yes Review of Systems Constitutional: no symptoms reported EENTM: No Symptoms Reported Respiratory: See HPI Cardiovascular: See HPI Gastrointestinal: No Symptoms Reported Genitourinary: No Symptoms Reported Musculoskeletal: see HPI Skin: no symptoms reported Psychiatric/Neurological: No Symptoms Reported Endocrine: No Symptoms Reported Hematologic/Lymphatic: No Symptoms Reported Past Xepofjp-Jsctio-Mggpdq Hx Patient Social History Alcohol Use: Denies Use Recreational Drug Use: No Smoking Status: Former Smoker Former Smoker, Quit: Apr 06, 1976 Recent Foreign Travel: No Contact w/Someone Who Travel: No Recent Infectious Disease Expo: No Recent Hopitalizations: No (shoulder sx) Immunizations Up To Date Tetanus Booster (TDap): Unknown Date of Influenza Vaccine: Feb 09, 2017 Seasonal Allergies Seasonal Allergies: Yes Past Medical History Surgeries: Yes (left shoulder, left knee scope, neck discectomy) Gallbladder, Orthopedic (Right shoulder arthroscopically) Respiratory: No Cardiac: Yes (Irregular heart rate) High Cholesterol, Hypertension Neurological: No Reproductive Disorders: No Genitourinary: No Prostate Problems Gastrointestinal: Yes Gastroesophageal Reflux Musculoskeletal: Yes Arthritis, Chronic Back Pain Endocrine: No HEENT: No Cancer: No Psychosocial: No Integumentary: No Blood Disorders: No Physical Exam Vital Signs Vital Signs - First Documented Capillary Refill : Less Than 3 Seconds General Appearance: WD/WN, Moderate Distress HEENT: PERRL/EOMI, Normal ENT Inspection Neck: Normal Inspection Respiratory: Lungs Clear, No Accessory Muscle Use, No Respiratory Distress, Decreased Breath Sounds (Diminished breath sounds bilaterally) Cardiovascular: Regular Rate, Rhythm, No Edema, No Murmur, Tachycardia Gastrointestinal: Normal Bowel Sounds, Soft, Tenderness (Left upper quadrant) Extremity: Normal Inspection, Non Tender, No Pedal Edema, Other (Negative Jackie ) Neurologic/Psychiatric: Alert, Oriented x3, No Motor/Sensory Deficits, Normal Mood/Affect, bone density technician II-XII Norm as Tested Skin: Normal Color, Warm/Dry Progress/Results/Core Measures Results/Orders Lab Results Laboratory Tests Test 10/23/17 23:33 Range/Units White Blood Count 10.1 4.3-11.0 10^3/uL Red Blood Count 4.55 4.35-5.85 10^6/uL Hemoglobin 11.0 L 13.3-17.7 G/DL Hematocrit 34 L 40-54 % Mean Corpuscular Volume 74 L 80-99 FL Mean Corpuscular Hemoglobin 24 L 25-34 PG Mean Corpuscular Hemoglobin Concent 33 32-36 G/DL Red Cell Distribution Width 15.0 H 10.0-14.5 % Platelet Count 404 H 130-400 10^3/uL Mean Platelet Volume 9.6 7.4-10.4 FL Neutrophils (%) (Auto) 76 H 42-75 % Lymphocytes (%) (Auto) 11 L 12-44 % Monocytes (%) (Auto) 10 0-12 % Eosinophils (%) (Auto) 4 0-10 % Basophils (%) (Auto) 0 0-10 % Neutrophils # (Auto) 7.7 1.8-7.8 X 10^3 Lymphocytes # (Auto) 1.1 1.0-4.0 X 10^3 Monocytes # (Auto) 1.0 0.0-1.0 X 10^3 Eosinophils # (Auto) 0.4 H 0.0-0.3 10^3/uL Basophils # (Auto) 0.0 0.0-0.1 10^3/uL Prothrombin Time 14.3 12.2-14.7 SEC INR Comment 1.1 0.8-1.4 Activated Partial Thromboplast Time 37 H 24-35 SEC Sodium Level 138 135-145 MMOL/L Potassium Level 4.1 3.6-5.0 MMOL/L Chloride Level 105 98-107 MMOL/L Carbon Dioxide Level 22 21-32 MMOL/L Anion Gap 11 5-14 MMOL/L Blood Urea Nitrogen 14 7-18 MG/DL Creatinine 0.76 0.60-1.30 MG/DL Estimat Glomerular Filtration Rate > 60 BUN/Creatinine Ratio 18 Glucose Level 133 H 70-105 MG/DL Calcium Level 9.6 8.5-10.1 MG/DL Magnesium Level 2.1 1.8-2.4 MG/DL Total Bilirubin 0.9 0.1-1.0 MG/DL Aspartate Amino Transf (AST/SGOT) 17 5-34 U/L Alanine Aminotransferase (ALT/SGPT) 20 0-55 U/L Alkaline Phosphatase 84 40-136 U/L Myoglobin 34.7 10.0-92.0 NG/ML Troponin I < 0.30 <0.30 NG/ML B-Type Natriuretic Peptide 17.8 <100.0 PG/ML Total Protein 7.1 6.4-8.2 GM/DL Albumin 4.0 3.2-4.5 GM/DL My Orders Orders - LANCE VILLEDA MD Cbc With Automated Diff (10/23/17 23:31) Magnesium (10/23/17 23:31) Chest 1 View, Ap/Pa Only (10/23/17 23:31) Ekg Tracing (10/23/17 23:31) Cardiac Profile 1 (10/23/17 23:31) Comprehensive Metabolic Panel (10/23/17 23:31) Myoglobin Serum (10/23/17 23:31) Protime With Inr (10/23/17 23:31) Partial Thromboplastin Time (10/23/17 23:31) O2 (10/23/17 23:31) Monitor-Rhythm Ecg Trace Only (10/23/17 23:31) Lipid Panel (10/24/17 06:00) Saline Lock/Iv-Start (10/23/17 23:31) BNP (10/23/17 23:32) Nitroglycerin 0.4 Mg Btl 25's (Nitrostat (10/23/17 23:45) Fentanyl Injection (Sublimaze Injection (10/23/17 23:45) Morphine Injection (Morphine Injection (10/24/17 00:15) Morphine Injection (Morphine Injection (10/24/17 02:15) Ct Kathleen Chest/Noang Abd-Pelv W (10/24/17 02:05) Albuterol/Ipra Inhalation Soln (Duoneb I (10/24/17 02:15) Svn Small Volume Nebulizer (10/24/17 02:06) Hydromorphone Injection (Dilaudid Inje (10/24/17 02:58) Iohexol Injection (Omnipaque 350 Mg/Ml 1 (10/24/17 03:15) Pharmacy Communication (Pharmacy Communi (10/24/17 03:11) Ns (Ivpb) (Sodium Chloride 0.9%) (10/24/17 03:15) Piperacillin Sodium/Tazobactam (Zosyn Vi (10/24/17 04:15) Piperacillin/Tazobactam (Zosyn Vial) (10/24/17 04:30) Medications Given in ED Current Medications Medications Dose Ordered Sig/Michelle Route Start Time Stop Time Status Last Admin Dose Admin Albuterol/ Ipratropium 3 ml ONCE ONCE INH 10/24/17 02:15 10/24/17 02:16 DC 10/24/17 02:13 3 ML Fentanyl Citrate 75 mcg ONCE ONCE IVP 10/23/17 23:45 10/23/17 23:46 DC 10/23/17 23:46 75 MCG Iohexol 125 ml ONCE ONCE IV 10/24/17 03:15 10/24/17 03:24 DC 10/24/17 03:15 125 ML Morphine Sulfate 5 mg ONCE ONCE IVP 10/24/17 00:15 10/24/17 00:16 DC 10/24/17 00:20 5 MG Morphine Sulfate 8 mg ONCE ONCE IVP 10/24/17 02:15 10/24/17 02:16 DC 10/24/17 02:28 8 MG Nitroglycerin 0.4 mg UD PRN SL 10/23/17 23:45 10/24/17 00:21 0.4 MG Piperacillin Sod/ Tazobactam Sod 3.375 gm/Dextrose 100 ml @ 200 mls/hr ONCE ONCE IV 10/24/17 04:30 10/24/17 05:00 DC 10/24/17 04:43 200 MLS/HR Sodium Chloride 80 ml ONCE ONCE IV 10/24/17 03:15 10/24/17 03:24 DC 10/24/17 03:15 80 ML Vital Signs/I&O 10/23/17 10/23/17 10/23/17 10/24/17 23:25 23:25 23:46 02:13 Temp 97.8 97.8 Pulse 109 Resp 18 B/P (MAP) 201/99 (133) Pulse Ox 96 95 O2 Delivery Room Air Room Air Room Air Blood Pressure Mean: 133 Progress Progress Note : Progress Note Cardiac workup was unremarkable. Patient had significant pain despite treatment with fentanyl and morphine. He was noted to be tachycardic. CT angiogram of the chest with nonangiogram CT of the abdomen with contrast was performed. Patient had findings of pneumothorax on the right and pleural effusion on the left. There were multiple small pulmonary nodules noted and a lytic lesion within the right scapula. Findings were concerning for neoplastic process. Case was reviewed with Dr. Wilson who would like to monitor the pneumothorax and drain the pleural effusion. He plans to drain the pleural effusion later this morning. Patient was further treated with Dilaudid to control his pain. Zosyn was initiated for antibiotic coverage. Initial ECG Impression Date: Oct 24, 2017 Initial ECG Impression Time: 23:33 Initial ECG Rate: 115 Initial ECG Rhythm: S.Tach Comment Sinus tachycardia with no ST elevation or depression. No abnormal intervals or axis deviation. Diagnostic Imaging Diagonstic Imaging: Xray Plain Films/CT/US/NM/MRI: chest Comments Chest x-ray viewed by me. Report not yet available. There is evidence of congestion and effusion versus infiltrate in the left lower lung. Diagonstic Imaging: CT Plain Films/CT/US/NM/MRI: chest, abdomen Comments CT angiogram of the chest with non-angiogram CT of the abdomen viewed by me and [facility] report reviewed. There was no evidence of pulmonary embolism. There is a moderate right pneumothorax with partial right lung collapse/atelectasis. There is a minimal right pleural effusion. Moderate size left pleural effusion with associated compressive atelectasis. Multiple small ill-defined bilateral pulmonary nodules which are of indeterminate etiology. There is mild mediastinal lymphadenopathy. Bony findings are suggestive of osteolytic process involving the right scapula worrisome for metastatic disease or possible myeloma. There is associated right parascapular soft tissue enlargement/mass Departure Communication (Admissions) Time/Spoke to Admitting Phy: 04:05 Dr. Henriquez Time/Spoke to Consulting Phy: 03:50 Dr. Wilson Impression Primary Impression: Pneumothorax, right Additional Impressions: Recurrent left pleural effusion Multiple pulmonary nodules Lytic lesion of bone on x-ray Disposition: 01 HOME, SELF-CARE Condition: Improved Admissions Decision to Admit Reason: Admit from ER (General) Decision to Admit/Date: Oct 24, 2017 Time/Decision to Admit Time: 03:45 Departure-Patient Inst. Referrals: FOX MENJIVAR MD (PCP/Family) Primary Care Physician LANCE VILLEDA MD Oct 24, 2017 04:46
[2017-10-24 05:30] LABS: CHOLESTEROL 150 MG/DL (< 200); HDL CHOLESTEROL 28 MG/DL (40-60); TRIGLYCERIDES 100 MG/DL (<150); VLDL CHOLESTEROL 20 MG/DL (5-40)
[2017-10-24] MEDS ORDERED: ONDANSETRON 4 MG/2 ML (SDV) Z0FRAN IV PRN (05:30)
--- NOTE | 2017-10-24 07:34 | Diagnostic Imaging Report ---
CT angiogram of the chest, CT abdomen and pelvis with contrast. Indication: Chest and rib pain. Findings: There is suboptimal opacification demonstrated of the pulmonary arteries due to contrast timing. There is also mild motion. There is no central pulmonary embolism demonstrated. The aorta appears normal in caliber without evidence of aneurysm or dissection. Heart size appears within normal limits. There are mild coronary calcifications. There is a trace pericardial effusion. A moderate-sized right-sided pneumothorax is demonstrated. There is no left pneumothorax. There is a moderate to large left pleural effusion with adjacent compressive atelectasis within the left lower lobe. There is a small right effusion. There are numerous scattered subcentimeter nodules demonstrated throughout both of the lungs. The largest nodule is demonstrated within the right lung base just above the diaphragm. This measures 1.2 cm. Considerations would include both infectious or neoplastic processes. The patient is status post previous anterior cervical fusion. There is an aggressive and destructive-appearing lesion involving the right scapular body with likely an abnormal process demonstrated within the right rotator cuff musculature. This also is suspect for neoplastic or aggressive infectious process. There are mildly prominent mediastinal and bilateral hilar lymph nodes. The liver demonstrates no definitive evidence of a focal intrahepatic abnormality. The gallbladder is surgically absent. There is mild extrahepatic biliary prominence of the common bile duct and common hepatic duct. There is no intrahepatic ductal dilatation. There is mild splenomegaly without evidence of focal abnormality. The pancreas is unremarkable. There is a small subcentimeter nonspecific right adrenal nodule. Left is normal. Kidneys enhance normally and are nonobstructed. There is no evidence of abnormal bowel dilation. No focal abnormal bowel thickening. There is no free air or free fluid. No abdominal or pelvic lymphadenopathy demonstrated. Aorta is normal in caliber. There is degenerative features throughout the spine and at both hips but no additional suspicious osseous abnormality. Impression: 1. Moderate right-sided pneumothorax with partial right lung collapse. There is a trace right effusion 2. Moderate to large left effusion with adjacent compressive atelectasis. 3. Multiple ill-defined pulmonary nodules which may be on an infectious or neoplastic basis. Given the appearance of an aggressive destructive lesion involving the right scapular body and right rotator cuff soft tissue mass, neoplastic process is favored. 4. Mildly prominent hilar and mediastinal lymph nodes may also be on a neoplastic or infectious basis. 5. No acute inflammatory or obstructive process evident within the abdomen or pelvis. There is mild splenomegaly. The patient is status post previous cholecystectomy. 6. I agree with the preliminary Radha report. Dictated by: Dictated on workstation # [id number]
--- NOTE | 2017-10-24 07:38 | Diagnostic Imaging Report ---
Indication: Chest tightness and dyspnea. Discussion: Single portable upright view of the chest was obtained. Small to moderate left pleural effusion is noted. Interstitial infiltrates are noted within the lung bases, edema versus pneumonia. No pneumothorax. Heart borders are mostly obscured. Postoperative changes are noted within the cervical spine. Impression: 1. Small moderate left pleural effusion. 2. Bibasilar infiltrates. Dictated by: Dictated on workstation # [id number]
[2017-10-24] MEDS ORDERED: LIDOCAINE 1% INJ 20 ML 20 ML VIAL INJ ONE (08:45)
[2017-10-24] MEDS: HYDROmorphone 1 MG/ML (DILAUDID) 1 ML SYRINGE IV PRN (09:06)
--- NOTE | 2017-10-24 09:09 | Diagnostic Imaging Report ---
EXAMINATION: Chest ultrasound INDICATION: Evaluate for pleural effusion for thoracentesis. FINDINGS: Sonographic imaging of the left chest demonstrates a large left-sided pneumothorax with some associated left lower lobe collapse. IMPRESSION: 1. Large left pleural effusion. This was marked for thoracentesis. Dictated by: Dictated on workstation # [id number]
[2017-10-24] MEDS ORDERED: LIDOCAINE 1% INJ 20 ML 20 ML VIAL ONE (09:14)
--- NOTE | 2017-10-24 09:48 | History & Physical-Hospitalist ---
History of Present Illness HPI/Chief Complaint Mr. Crowell a 67-year-old white malewho presented to the emergency room with increasing left anterior chest pain and right posterior shoulder pain. The anterior chest pain on the left is what brought in and out of the hospital. He has not felt well for several months with a persistent dry cough and increasing fatigue with slow increase in shortness of breath. He's had increasing right shoulder pain over the past 6 months following a rotator cuff tear for which she underwent repair earlier this year. He continued to have pain in the right shoulder in 2 weeks ago underwent arthroscopic scar tissue debridement per his report. He's had persistent right upper extremity swelling sincedenies any problems with facial swelling. He's had no night sweats chills or fever. He underwent CT angiography that did not reveal any evidence for pulmonary embolism but he had multiple subcentimeter bilateral pulmonary nodules and mediastinal adenopathyand a destructive process involvingthe right scapula. He reports less than a 5-pack-year smoking history but quit in his 20s. He has no past history of cancer. Date Seen 10/24/17 Time Seen by Provider: 07:30 Attending Physician Joel Henriquez MD PCP Chandana Menjivar MD Referring Physician Date of Admission Oct 24, 2017 at 04:30 Home Medications & Allergies Home Medications Reviewed patient Home Medication Reconciliation performed by pharmacy medication reconciliations electrical manufacturing technician and/or nursing. Patients Allergies have been reviewed. Allergies Allergies Coded Allergies tolmetin sodium (Unverified Allergy, Severe, ANAPHYLAXIS, 02/04/13) Past Hjvkugd-Dsbham-Dknuzc Hx Past Med/Social Hx: Reviewed and Corrections made Patient Social History Alcohol Use: Denies Use Recreational Drug Use: No Smoking Status: Former Smoker Former Smoker, Quit: Apr 06, 1976 Type Used: Cigarettes Physical Abuse Screen: No Sexual Abuse: No Recent Foreign Travel: No Contact w/other who traveled: No Recent Hopitalizations: No (shoulder sx) Recent Infectious Disease Expo: No Immunizations Up To Date Tetanus Booster (TDap): Unknown Pediatric: No Date of Influenza Vaccine: Feb 09, 2017 Seasonal Allergies Seasonal Allergies: Yes Past Medical History Surgeries: Gallbladder, Orthopedic (Right shoulder arthroscopically) Currently Using CPAP: No Currently Using BIPAP: No Cardiac: High Cholesterol, Hypertension Reproductive: No Sexually Transmitted Disease: No HIV/AIDS: No Genitourinary: Prostate Problems Gastrointestinal: Gastroesophageal Reflux Musculoskeletal: Arthritis, Chronic Back Pain Are Your Blood Sugars Over 250: No Loss of Vision: Denies Hearing Impairment: Denies History of Blood Disorders: No Adverse Reaction to Blood Moody: No Family History Alzheimer's disease Cardiovascular disease 19 FATHER, , Onset:60 years & older G8 BROTHER, Onset:50's - 60 FH: COPD (chronic obstructive pulmonary disease) 19 MOTHER, , Onset:60 years & older Fam hx-osteoporosis G8 SISTER, Onset:60 years & older Myocardial infarction G8 BROTHER, Onset:50's - 60 Review of Systems Constitutional: see HPI; No chills, No diaphoresis, No dizziness, No fever, No malaise; weakness; No weight gain, No weight loss, No other Respiratory: see HPI, cough, dyspnea on exertion; No hemoptysis, No orthopnea, No phlegm, No short of breath, No stridor, No wheezing, No other Gastrointestinal: No RUQ, No LUQ, No RLQ, No LLQ, No no symptoms reported; see HPI; No abdominal pain, No constipation, No diarrhea, No dysphagia, No hematemesis, No heartburn, No jaundice; loss of appetite; No melena, No nausea, No vomiting, No other Musculoskeletal: back pain, joint swelling (right shoulder) Physical Exam Physical Exam Vital Signs Vital Signs - First Documented 10/24/17 10:00 O2 Flow Rate 2.00 Capillary Refill : Less Than 3 Seconds General Appearance: Mild Distress, Obese HEENT: Other (no JVD adenopathy or bruits noted.) Neck: Normal Inspection, Non Tender Respiratory: No Accessory Muscle Use, No Respiratory Distress, Other ( diminished breath sounds right upper lobe as well as left lower lobe with a few scattered rhonchi and no wheezing noted.) Cardiovascular: Regular Rate, Rhythm, No Edema, No Gallop, No JVD, No Murmur, Normal Peripheral Pulses Gastrointestinal: Normal Bowel Sounds, No Organomegaly, No Pulsatile Mass, Non Tender, Soft Extremity: Other (upper extremity and right shoulder swelling without erythema significant pain with any movement posteriorly over the right scapula no lower extremity edema or tenderness noted.) Neurologic/Psychiatric: Alert, Oriented x3 Skin: Pallor Results Results/Procedures Labs Laboratory Tests 10/23/17 23:33 10/25/17 03:35 Patient resulted labs reviewed. Assessment/Plan Admission Diagnosis A/P 1. Right pneumothorax moderate with left pleural effusion moderate and multiple subcentimeter pulmonary nodules hilar lymphadenopathy and a significant destructive-appearing process involving the right scapulaare most suggestive of underlying malignancy The patient was admitted for pain control and diagnostic left thoracentesis per Dr. Wilson. We'll continue to monitor daily chest x-rays for follow-up of right-sided pneumothorax asymptomatic at this time. We'll consult oncology to follow continue narcotic medication with consideration for radiation oncology for scapular palliation pending tissue diagnosis. Infection is highly unlikely. 2. Anemia most likely chronic disease secondary to number 1. Admission Status: Inpatient Order (span 2 midnights) Reason for Inpatient Admission: ee admission diagnosis Assessment and Plan see admission diagnosis Critical Care Critically Ill Patient Clinical Quality Measures DVT/VTE Risk/Contraindication: Risk Factor Score Per Nursin RFS Level Per Nursing on Admit: 3=High Copy Copies To 1: CHANDANA MENJIVAR MD, MARK D MD Oct 24, 2017 09:48
--- NOTE | 2017-10-24 09:57 | Consultation ---
History of Present Illness History of Present Illness Patient Consulted On(israel/time) 10/24/17 09:54 Date Seen by Provider: Oct 24, 2017 Time Seen by Provider: 08:55 Reason for Visit: Increasing shortness of breath and left chest pain of 4 days ' duration History of Present Illness This gentleman underwent arthroscopy of the right shoulder about 3 weeks ago. He recalls tripping addressed and oriented his house and falling on his left side 4 days ago. He has since become dyspneic and reports left-sided chest pain. Due to increasing symptoms, he presented to the emergency room. Evaluation is confirmed a right occult pneumothorax with a large left pleural effusion, requiring management. Allergies and Home Medications Allergies Coded Allergies: tolmetin sodium (Unverified Allergy, Severe, ANAPHYLAXIS, 02/04/13) Home Medications Alfuzosin HCl 10 Mg Tab.er.24h, 10 MG PO DAILY@1700, (Reported) Baclofen 10 Mg Tablet, 10 MG PO BID, (Reported) Flaxseed Oil 1,000 Mg Capsule, 1,000 MG PO TID, (Reported) Metformin HCl 500 Mg Tablet, 500 MG PO BID, (Reported) Metoprolol Succinate 50 Mg Tab.er.24h, 50 MG PO DAILY, (Reported) Omeprazole 20 Mg Capsule.dr, 20 MG PO DAILY, (Reported) Oxycodone HCl/Acetaminophen 1 Each Tablet, 1-2 TAB PO Q4H Prescribed by: MOISÉS KING on 04/08/17 1423 Ramipril 5 Mg Capsule, 5 MG PO DAILY, (Reported) Patient Home Medication List Home Medication List Reviewed: Yes Past Pqrdrgt-Vlsjbj-Ehjjzn Hx Patient Social History Alcohol Use: Denies Use Recreational Drug Use: No Smoking Status: Former Smoker Type Used: Cigarettes Former Smoker, Quit: Apr 06, 1976 Recent Foreign Travel: No Contact w/Someone Who Travel: No Recent Infectious Disease Expo: No Recent Hopitalizations: No (shoulder sx) Immunizations Up To Date Tetanus Booster (TDap): Unknown PED Vaccines UTD: No Date of Influenza Vaccine: Feb 09, 2017 Seasonal Allergies Seasonal Allergies: Yes Past Medical History Surgeries: Yes (left shoulder, left knee scope, neck discectomy) Gallbladder, Orthopedic (Right shoulder arthroscopically) Respiratory: No Currently Using CPAP: No Currently Using BIPAP: No Cardiac: Yes (Irregular heart rate) High Cholesterol, Hypertension Neurological: No Reproductive Disorders: No Sexually Transmitted Disease: No HIV/AIDS: No Genitourinary: Yes Prostate Problems Gastrointestinal: Yes Gastroesophageal Reflux Musculoskeletal: Yes Arthritis, Chronic Back Pain Endocrine: Yes Are Your Blood Sugars Over 250: No HEENT: No Loss of Vision: Denies Hearing Impairment: Denies Cancer: No Psychosocial: No Integumentary: No Blood Disorders: No Adverse Reaction/Blood Tranf: No Family Medical History Alzheimer's disease Cardiovascular disease 19 FATHER, , Onset:60 years & older G8 BROTHER, Onset:50's - 60 FH: COPD (chronic obstructive pulmonary disease) 19 MOTHER, , Onset:60 years & older Fam hx-osteoporosis G8 SISTER, Onset:60 years & older Myocardial infarction G8 BROTHER, Onset:50s - 60 Review of Systems-General Constitutional: see HPI EENTM: no symptoms reported Respiratory: see HPI Cardiovascular: no symptoms reported Gastrointestinal: no symptoms reported Genitourinary: no symptoms reported Musculoskeletal: back pain, joint pain Skin: no symptoms reported Psychiatric/Neurological: No Symptoms Reported Physical Exam-General Problems Physical Exam Vital Signs Vital Signs - First Documented Capillary Refill : Less Than 3 Seconds General Appearance: moderate distress HEENT: normal ENT inspection Neck: limited range of motion Respiratory: decreased breath sounds Cardiovascular: regular rate, rhythm Gastrointestinal: non tender, soft Back: normal inspection Extremities: other Neurologic/Psychiatric: alert, oriented x 3 Skin: warm/dry Comments Limited movements of both shoulders and the cervical spine. Assessment/Plan Assessment/Plan Admission Diagnosis/Plan Gentleman with left pleural effusion and a small right occult pneumothorax. Reasonable to perform thoracentesis first and second of fluid for cytology, Gram stain and culture etc. I have discussed this with him and he is in agreement to proceed with thoracentesis. Admission Status: Inpatient Order (span 2 midnights) Clinical Quality Measures DVT/VTE Risk/Contraindication: Risk Factor Score Per Nursin RFS Level Per Nursing on Admit: 3=High LETY PEREZ MD Oct 24, 2017 9:57 am
--- NOTE | 2017-10-24 09:59 | Operative Report ---
Operative Report Date of Procedure/Surgery Oct 24, 2017 Surgeon (s) LETY PEREZ MD Electrolysis Needle Operator (s): N/A Post-Operative Diagnosis Left hemothorax/hemorrhagic effusion Procedure Performed Thoracentesis Description of Procedure Anesthesia Type: Block Estimated blood loss (mL): n/a Specimen(s) collected/removed Pleural fluid Description of the Procedure Indication for the procedure: This gentleman has been admitted with a large left pleural effusion and a small right occult pneumothorax. He was offered thoracentesis at the bedside. Informed consent was obtained after reviewing the procedure in detail. Description of procedure: The area of maximal fluid collection was marked by ultrasound guidance and he was sat up at the bedside. His posterior chest wall on the left side was prepared and draped in the usual sterile manner. Local anesthesia was achieved using 1 percent lidocaine. Using the [id number] device, pleural cavity was entered and hemorrhagic fluid encountered. It was connected to a vacuum bottle and a dressing applied. A total of 1900 mL of hemorrhagic fluid was removed, a specimen being sent for cytology, Gram stain and culture. Findings of the Procedure see procedure report Allergies and Home Medications Allergies Coded Allergies: tolmetin sodium (Unverified Allergy, Severe, ANAPHYLAXIS, 02/04/13) Home Medications Alfuzosin HCl 10 Mg Tab.er.24h, 10 MG PO DAILY@1700, (Reported) Baclofen 10 Mg Tablet, 10 MG PO BID, (Reported) Flaxseed Oil 1,000 Mg Capsule, 1,000 MG PO TID, (Reported) Metformin HCl 500 Mg Tablet, 500 MG PO BID, (Reported) Metoprolol Succinate 50 Mg Tab.er.24h, 50 MG PO DAILY, (Reported) Omeprazole 20 Mg Capsule.dr, 20 MG PO DAILY, (Reported) Oxycodone HCl/Acetaminophen 1 Each Tablet, 1-2 TAB PO Q4H Prescribed by: MOISÉS KING on 04/08/17 1423 Ramipril 5 Mg Capsule, 5 MG PO DAILY, (Reported) Patient Home Medication List Home Medication List Reviewed: Yes LETY PEREZ MD Oct 24, 2017 9:59 am
[2017-10-24] MEDS: PIPERACILLIN/TAZO 3.375 GM/D5W 100 ML IV SCH ×4 (10:41→18:05)
[2017-10-24] MEDS: oxyCODONE/APAP 10/325MG (PERCOCET 10) TABLET PO PRN ×2 (10:41→14:46)
[2017-10-24 11:35] LABS: BODY FLUID APPEARENCE MKD BLDY; BODY FLUID COLOR RED; BODY FLUID SOURCE PLEURAL; BODY FLUID WBC TOTAL COUNT 22 /uL
[2017-10-24 11:36] LABS: BF OTHER CELLS 0 %; BODY FLUID RBC COUNT 376000 /uL; LYMPHOCYTES,BODY FLUID 83 %
[2017-10-24] MEDS ORDERED: FLUT16SP22 NS (11:46)
[2017-10-24] MEDS ORDERED: OXYC-471 PO (11:47)
[2017-10-24] MEDS ORDERED: IBUP-2055 PO (11:47)
[2017-10-24] MEDS ORDERED: ANTACID SUSP 30 ML UDC (MYLANTA) PO PRN (14:15)
[2017-10-24] MEDS ORDERED: GABAPENTIN 100 MG (NEURONTIN) CAP PO PRN (14:15)
[2017-10-24] MEDS ORDERED: PATIENT MAY USE OWN MEDS, ALL MC SCH (14:15)
[2017-10-24] MEDS: DOCUSATE SODIUM 100 MG (COLACE) CAP PO SCH ×2 (14:46→20:00)
[2017-10-24] MEDS: ALFUZOSIN HCL 10 MG TAB (UROXATRAL) PO SCH (16:21)
[2017-10-24] MEDS: oxyCODONE/APAP 5/325MG (PERCOCET 5) TABLET PO PRN (20:00)
[2017-10-24] MEDS: IBUPROFEN TABLET 200 MG TAB PO PRN (21:31)
[2017-10-25] VITALS (18 sets, daily range): BP systolic 116–143; BP diastolic 59–77
[2017-10-25] MEDS: oxyCODONE/APAP 5/325MG (PERCOCET 5) TABLET PO PRN ×6 (01:04→22:23)
[2017-10-25] MEDS: PIPERACILLIN/TAZO 3.375 GM/D5W 100 ML IV SCH ×6 (02:09→17:27)
[2017-10-25] MEDS: HYDROmorphone 1 MG/ML (DILAUDID) 1 ML SYRINGE IV PRN (02:09)
[2017-10-25 04:21] LABS: BASOPHILS % (AUTO) 0 % (0-10); EOSINOPHILS # (AUTO) 0.4 10^3/uL (0.0-0.3); EOSINOPHILS % (AUTO) 6 % (0-10); HEMATOCRIT 29 % (40-54); HEMOGLOBIN 9.6 G/DL (13.3-17.7); LYMPHOCYTES # (AUTO) 1.1 X 10^3 (1.0-4.0); LYMPHOCYTES % (AUTO) 16 % (12-44); MEAN CORPUSCULAR HEMOGLOBIN 25 PG (25-34); MEAN CORPUSCULAR HGB CONC 33 G/DL (32-36); MEAN CORPUSCULAR VOLUME 75 FL (80-99); MONOCYTES # (AUTO) 0.8 X 10^3 (0.0-1.0); MONOCYTES % (AUTO) 11 % (0-12); NEUTROPHILS # (AUTO) 4.8 X 10^3 (1.8-7.8); NEUTROPHILS % (AUTO) 67 % (42-75); PLATELET COUNT 341 10^3/uL (130-400); WHITE BLOOD COUNT 7.2 10^3/uL (4.3-11.0)
[2017-10-25 04:50] LABS: BUN/CREATININE RATIO 17; CALCIUM 8.8 MG/DL (8.5-10.1); CARBON DIOXIDE 23 MMOL/L (21-32); CHLORIDE 104 MMOL/L (98-107); CREATININE SERUM 0.72 MG/DL (0.60-1.30); GFR ESTIMATED > 60; GLUCOSE 139 MG/DL (70-105); PHOSPHORUS 3.7 MG/DL (2.3-4.7); POTASSIUM 3.7 MMOL/L (3.6-5.0); SODIUM 136 MMOL/L (135-145)
[2017-10-25] MEDS: IBUPROFEN TABLET 200 MG TAB PO PRN ×4 (05:41→17:26)
--- NOTE | 2017-10-25 07:30 | Diagnostic Imaging Report ---
Indication: Dyspnea, left pleural effusion followup. Discussion: Single portable upright view of the chest was obtained, comparison 10/23/2017. Small left pleural effusion appears slightly decreased. Decreased inspiratory effort on today's exam. There appears to be a new 3 cm right pneumothorax which is unchanged from CT from yesterday. Stable heart size. Postoperative changes are again noted within the cervical spine. Impression: 1. A 3 cm right apical pneumothorax, unchanged from previous CT. 2. Small left pleural effusion slightly decreased. Dictated by: Dictated on workstation # [id number]
[2017-10-25] MEDS: FLUTICASONE NASAL SPRAY (FLONASE) 16 GM BTL NS SCH (08:29)
[2017-10-25] MEDS: DOCUSATE SODIUM 100 MG (COLACE) CAP PO SCH ×2 (08:29→20:47)
[2017-10-25] MEDS: OMEPRAZOLE 20 MG (PriLOSEC) CAP PO SCH (08:29)
[2017-10-25] MEDS: RAMIPRIL 5 MG (ALTACE) CAP PO SCH (08:30)
[2017-10-25] MEDS: meTOproloL SUCCINATE 50 MG (TOPROL XL) TAB PO SCH (08:30)
--- NOTE | 2017-10-25 12:32 | Progress Note-Hospitalist ---
Subjective HPI/CC On Admission Date Seen by Provider: Oct 25, 2017 Time Seen by Provider: 08:50 Mr. Crowell a 67-year-old white malewho presented to the emergency room with increasing left anterior chest pain and right posterior shoulder pain. The anterior chest pain on the left is what brought in and out of the hospital. He has not felt well for several months with a persistent dry cough and increasing fatigue with slow increase in shortness of breath. He's had increasing right shoulder pain over the past 6 months following a rotator cuff tear for which she underwent repair earlier this year. He continued to have pain in the right shoulder in 2 weeks ago underwent arthroscopic scar tissue debridement per his report. He's had persistent right upper extremity swelling sincedenies any problems with facial swelling. He's had no night sweats chills or fever. He underwent CT angiography that did not reveal any evidence for pulmonary embolism but he had multiple subcentimeter bilateral pulmonary nodules and mediastinal adenopathyand a destructive process involving the right scapula. He reports less than a 5-pack-year smoking history but quit in his 20s. He has no past history of cancer. Subjective/Events-last exam Patient reports breast pain is better today 2 out of 10 just involving the right shoulder. There is still significant pain with movement. He did go for a short walk yesterday. Other than generalized weakness she reports no other neurologic change denies headache or vision change and is had no abdominal pain or nausea. He denies shortness of breath with mild dry cough. Objective Exam Vital Signs Vital Signs Date Time Temp Pulse Resp B/P (MAP) Pulse Ox O2 Delivery O2 Flow Rate FiO2 10/25/17 12:00 70 9 121/59 (79) 96 Nasal Cannula 2.00 10/25/17 08:00 97.3 Capillary Refill : Less Than 3 Seconds General Appearance: No Apparent Distress, Chronically ill Respiratory: No Accessory Muscle Use, No Respiratory Distress, Other (Chest clear anteriorly a few scattered rhonchi posteriorly with decreased breath sounds in the left base) Cardiovascular: Regular Rate, Rhythm, No Edema, No Gallop, No JVD, No Murmur, Normal Peripheral Pulses Gastrointestinal: Normal Bowel Sounds, No Organomegaly, No Pulsatile Mass, Non Tender, Soft Extremity: Other (Right shoulder right upper extremity swelling about the same no erythema no lower extremity edema) Neurologic/Psychiatric: Alert, Oriented x3 Skin: Pallor Results/Procedures Lab Laboratory Tests 10/25/17 03:35 Patient resulted labs reviewed. Assessment/Plan Assessment and Plan Assess & Plan/Chief Complaint A/P 1. Right pneumothorax moderate with left pleural effusion moderate and multiple subcentimeter pulmonary nodules hilar lymphadenopathy and a significant destructive-appearing process involving the right scapula are most suggestive of underlying malignancy The patient was admitted for pain control Diagnostic left thoracentesis per Dr. Wilson yesterday revealed a bloody effusion compatible with malignancy. We'll continue to monitor daily chest x- rays for follow-up of right-sided pneumothorax asymptomatic at this time. Oncology is not available this weekend. Patient reports no preference and will discuss with Dr. Diaz in the morning. 2. Stable moderate right pneumothorax unchanged on x-ray today asymptomatic. 3. Anemia most likely chronic disease secondary to number 1. 4. Will initiate OxyContin 20 mg twice a day continuing when necessary IR formulation. For constipation prevention Senokot S twice a day. Critical Care Critical Care: Critically Ill Patient Clinical Quality Measures DVT/VTE Risk/Contraindication: Risk Factor Score Per Nursin RFS Level Per Nursing on Admit: 3=High LARA HUNTLEY MD Oct 25, 2017 12:32
[2017-10-25] MEDS ORDERED: oxyCODONE ER 20 MG (OxyCONTIN CR) TAB PO NR (12:38)
[2017-10-25] MEDS ORDERED: SENNA W/DOCUSATE (SENOKOT S) TABLET PO NR (12:43)
--- NOTE | 2017-10-25 13:02 | Progress Note (SOAP) ---
Subjective Date Seen by Provider: Oct 25, 2017 Time Seen by Provider: 13:00 Subjective/Events-last exam Dyspnea better. Afebrile. Right pneumothorax stable. Pain over his r scapula continues. Left lung expanded on CxR Review of Systems General: No Chills, No Night Sweats, No Fatigue, No Malaise HEENT: No Head Aches, No Eye Pain, No Ear Pain, No Dysphasia, No Sinus Congestion, No Post Nasal Drip, No Sore Throat Pulmonary: Cough Cardiovascular: No: Chest Pain, Palpitations, Orthopnea, Paroxysmal Noc. Dyspnea, Edema, Lt Headedness Gastrointestinal: No: Nausea, Vomiting, Abdominal Pain, Diarrhea, Constipation , Melena, Hematochezia Genitourinary: No Dysuria, No Frequency, No Incontinence, No Hematuria, No Retention Musculoskeletal: shoulder pain, back pain Neurological: No: Weakness, Numbness, Incoordination, Change in speech, Confusion, Seizures, Other Objective Exam Vital Signs Date Time Temp Pulse Resp B/P (MAP) Pulse Ox O2 Delivery O2 Flow Rate FiO2 10/25/17 12:00 70 9 121/59 (79) 96 Nasal Cannula 2.00 10/25/17 11:00 69 9 140/63 (88) 97 Nasal Cannula 2.00 10/25/17 10:00 73 12 143/66 (91) 97 Nasal Cannula 2.00 10/25/17 09:00 62 9 116/61 (79) 97 Nasal Cannula 2.00 10/25/17 08:30 Nasal Cannula 2.00 10/25/17 08:00 97.3 Nasal Cannula 2.00 10/25/17 08:00 77 33 139/66 (90) 94 Nasal Cannula 2.00 10/25/17 07:00 69 11 124/68 (86) 93 Nasal Cannula 2.00 10/25/17 07:00 70 10/25/17 06:00 75 14 127/66 (86) 93 Nasal Cannula 2.00 10/25/17 05:00 77 13 139/64 (89) 94 Nasal Cannula 2.00 10/25/17 04:00 Nasal Cannula 2.00 10/25/17 04:00 71 9 125/75 (92) 92 Nasal Cannula 2.00 10/25/17 04:00 98.3 10/25/17 03:00 73 11 121/66 (84) 92 Nasal Cannula 2.00 10/25/17 02:00 77 11 123/59 (80) 93 Nasal Cannula 2.00 10/25/17 01:00 81 15 138/77 (97) 94 Nasal Cannula 2.00 10/25/17 01:00 81 10/25/17 00:00 98.2 10/25/17 00:00 72 11 129/62 (84) 92 Nasal Cannula 2.00 10/25/17 00:00 Nasal Cannula 2.00 10/24/17 23:00 84 12 139/76 (97) 92 Nasal Cannula 2.00 10/24/17 22:00 72 11 156/74 (101) 90 Nasal Cannula 2.00 10/24/17 21:00 80 15 160/66 (97) 94 Nasal Cannula 2.00 10/24/17 20:00 98.8 10/24/17 20:00 85 19 150/75 (100) 96 Nasal Cannula 2.00 10/24/17 20:00 Nasal Cannula 2.00 10/24/17 19:00 83 26 145/69 (94) 94 Nasal Cannula 2.00 10/24/17 19:00 83 10/24/17 18:00 86 14 152/73 (99) 94 Nasal Cannula 2.00 10/24/17 17:00 81 21 158/69 (98) 94 Nasal Cannula 2.00 10/24/17 16:12 98.8 Nasal Cannula 2.00 10/24/17 16:12 Room Air 10/24/17 16:00 92 16 161/83 (109) 95 Nasal Cannula 2.00 10/24/17 15:00 77 12 148/73 (98) 94 Nasal Cannula 2.00 10/24/17 14:00 89 19 144/66 (92) 95 Nasal Cannula 2.00 I & O 10/25/17 07:00 Intake Total 1920 ml Output Total 1900 ml Balance 20 ml Capillary Refill : Less Than 3 Seconds General Appearance: No Apparent Distress HEENT: Normal ENT Inspection Neck: Limited Range of Motion Respiratory: Decreased Breath Sounds Cardiovascular: Regular Rate, Rhythm Gastrointestinal: non tender, soft Extremity: Other Neurologic/Psychiatric: Alert, Oriented x3 Skin: Warm/Dry Results Lab Laboratory Tests 10/25/17 03:35: White Blood Count 7.2, Red Blood Count 3.90L, Hemoglobin 9.6L, Hematocrit 29L, Mean Corpuscular Volume 75L, Mean Corpuscular Hemoglobin 25, Mean Corpuscular Hemoglobin Concent 33, Red Cell Distribution Width 15.0H, Platelet Count 341, Mean Platelet Volume 10.0, Neutrophils (%) (Auto) 67, Lymphocytes (%) (Auto) 16 , Monocytes (%) (Auto) 11, Eosinophils (%) (Auto) 6, Basophils (%) (Auto) 0, Neutrophils # (Auto) 4.8, Lymphocytes # (Auto) 1.1, Monocytes # (Auto) 0.8, Eosinophils # (Auto) 0.4H, Basophils # (Auto) 0.0, Sodium Level 136, Potassium Level 3.7, Chloride Level 104, Carbon Dioxide Level 23, Anion Gap 9, Blood Urea Nitrogen 12, Creatinine 0.72, Estimat Glomerular Filtration Rate > 60, BUN/ Creatinine Ratio 17, Glucose Level 139H, Calcium Level 8.8, Phosphorus Level 3.7 , Magnesium Level 2.0 Microbiology 10/24/17 Gram Stain - Final, Resulted 10/24/17 Body Fluid Culture - Preliminary, Resulted No growth Assessment/Plan Assessment/Plan Assess & Plan/Chief Complaint Gentleman with left pleural effusion and a small right occult pneumothorax. Reasonable to perform thoracentesis first and second of fluid for cytology, Gram stain and culture etc. I have discussed this with him and he is in agreement to proceed with thoracentesis. Final Diagnosis Left hemorrhagic pleural effusion. Cytology pending. Gram's stain negative. To floor Clinical Quality Measures DVT/VTE Risk/Contraindication: Risk Factor Score Per Nursin RFS Level Per Nursing on Admit: 3=High LETY PEREZ MD Oct 25, 2017 1:02 pm
[2017-10-25] MEDS: ALFUZOSIN HCL 10 MG TAB (UROXATRAL) PO SCH (17:26)
[2017-10-25] MEDS: oxyCODONE ER 20 MG (OxyCONTIN CR) TAB PO SCH (20:46)
[2017-10-25] MEDS: SENNA W/DOCUSATE (SENOKOT S) TABLET PO SCH (20:47)
[2017-10-26] VITALS: BP 153/72
[2017-10-26] MEDS: oxyCODONE/APAP 5/325MG (PERCOCET 5) TABLET PO PRN ×2 (02:16→06:31)
[2017-10-26] MEDS: PIPERACILLIN/TAZO 3.375 GM/D5W 100 ML IV SCH ×4 (02:17→10:13)
[2017-10-26 04:00] VITALS: BP 153/72
[2017-10-26] MEDS ORDERED: MAGNESIUM 1 GM/100 ML IVPB 100 ML IV SCH (06:00)
[2017-10-26] MEDS ORDERED: KCL 20 MEQ TAB (K-DUR) PO SCH (06:00)
[2017-10-26] MEDS ORDERED: POTASSIUM CL 10MEQ/50ML IVPB 50 ML IV SCH (06:00)
--- NOTE | 2017-10-26 07:49 | Progress Note-Standard ---
Standard Progress Note Progress Notes/Assess & Plan Date Seen by Provider: Oct 26, 2017 Time Seen by Provider: 07:48 Progress/Assessment & Plan Patient's main distracting symptom is about pain around his right scapula, consistent with erosion seen on CT scan. Cytology of the pleural fluid pending. Chest x-ray shows improvement of the right pneumothorax and minimal left pleural effusion. He could be discharged home with arrangements for outpatient follow-up Final Diagnosis Right pneumothorax. Hemorrhagic left pleural effusion LETY PEREZ MD Oct 26, 2017 07:49
--- NOTE | 2017-10-26 07:59 | Diagnostic Imaging Report ---
EXAMINATION: Chest radiograph, portable AP view. DATE: October 26, 2017 at 0342 hours. INDICATION: 67-year-old male, followup left pleural effusion. COMPARISON: October 25, 2017. FINDINGS: There is nonspecific left basilar airspace consolidation with blunting of the left lateral costophrenic angle. Stable overall appearance of the cardiomediastinal silhouette. There is a right-sided pneumothorax measuring approximately 3.5 cm from the lung apex. This is fairly similar to comparison exam. There is cervical spine hardware. There are slightly prominent bilateral interstitial opacities. IMPRESSION: 1. Ukldn-bo-idufwest right pneumothorax measuring 3.5 cm from the lung apex which is grossly unchanged in size since comparison exam. 2. Stable bilateral predominantly interstitial opacities. 3. Nonspecific left basilar airspace consolidation with probable left pleural effusion. Dictated by: Dictated on workstation # [id number]
[2017-10-26 08:00] VITALS: BP 156/70
[2017-10-26] MEDS ORDERED: TRAM50TA2 PO (08:21)
[2017-10-26] MEDS ORDERED: OXYC-465 PO (08:21)
--- NOTE | 2017-10-26 08:25 | Discharge Inst-Simple/Standard ---
Discharge Inst-Standard Discharge Medications New, Converted or Re-Newed RX: RX on Chart Patient Instructions/Follow Up Plan of Care/Instructions/FU: ---Follow up in 1 week at [facility] ---Will need to follow up with oncology ---awaiting results of the lung fluid ---do not take your metformin until 10/28/17 Activity as Tolerated: Yes Discharge Diet: No Restrictions Return to The Hospital For: worsening symptoms/ difficulty breathing Planned Outpatient Orders/Ref. Pneu Vac Indicated: Yes FOX MENJIVAR MD Oct 26, 2017 08:25
--- NOTE | 2017-10-26 08:36 | Discharge Summary ---
Diagnosis/Chief Complaint Date of Admission Oct 24, 2017 at 04:30 Date of Discharge October 26 2017 Admission Diagnosis Admission Diagnosis Right pneumothorax left pleural effusion moderate pulmonary nodules anemia of chronic disease Discharge Diagnosis Right pneumothorax -stable left pleural effusion moderate pulmonary nodules anemia of chronic disease Reason Hospital Visit Mr. Spaulding is a 67-year-old white male who presented to the emergency room with increasing left anterior chest pain and right posterior shoulder pain. The anterior chest pain on the left is what brought in and out of the hospital. He has not felt well for several months with a persistent dry cough and increasing fatigue with slow increase in shortness of breath. He's had increasing right shoulder pain over the past 6 months following a rotator cuff tear for which she underwent repair earlier this year. He continued to have pain in the right shoulder in 2 weeks ago underwent arthroscopic scar tissue debridement per his report. He's had persistent right upper extremity swelling since denies any problems with facial swelling. He's had no night sweats chills or fever. He underwent CT angiography that did not reveal any evidence for pulmonary embolism but he had multiple subcentimeter bilateral pulmonary nodules and mediastinal adenopathy and a destructive process involving the right scapula. He reports less than a 5-pack-year smoking history but quit in his 20s. He has no past history of cancer. Discharge Summary Hospital Course Hospital Course 67 yo M found to have a right pneumothorax and left pleural effusion- the pneumothorax was monitored through his hospitalization and appeared stable. Dr. Wilson was consulted and drained bloody fluid from the patient's left pleural effusion. Pt reports he is breathing and feeling much better. His pain was not under control because he takes his medication differently than how it was given in the hospital. He understands why it was given differently. Of note the CT of his chest also demonstrated lytic lesion of his right scapula and a mass in right shoulder. Pleural fluid has been sent for cytology. Pt was deemed stable for discharge on 10/26/17- he will follow up with oncology Dr. Ji once cytology is back. He will hold his metformin for 3 days since he had a CTA. He may keep moving his right shoulder as tolerated but back off on participating in PT as he was before. Labs Laboratory Tests 10/24/17 10:00: 10/25/17 03:35: Red Blood Count 3.90L, Hemoglobin 9.6L, Hematocrit 29L, Mean Corpuscular Volume 75L, Red Cell Distribution Width 15.0H, Eosinophils # (Auto) 0.4H, Glucose Level 139H Procedures left thoracentesis Consultations Dr. Wilson Discharge Physical Examination Allergies: Coded Allergies: tolmetin sodium (Unverified Allergy, Severe, ANAPHYLAXIS, 02/04/13) Vitals & I&Os Vital Signs Date Time Temp Pulse Resp B/P (MAP) Pulse Ox O2 Delivery O2 Flow Rate FiO2 10/26/17 08:00 Room Air 10/26/17 08:00 97.5 78 20 156/70 (98) 93 10/25/17 13:00 2.00 General Appearance: Alert, Oriented X3 HEENT: Atraumatic Respiratory: Clear to Auscultation Cardiovascular: Regular Rate Abdominal: Normal Bowel Sounds, Soft Skin: No Rashes Neuro: Normal Gait, Normal Speech Psych/Mental Status: Mental Status NL Discharge Home Medications Reviewed and agree with Discharge Medication list on patient's Discharge Instruction sheet Condition at Discharge stable Instructions to Patient/Family Please see electronic discharge instructions given to patient. Clinical Quality Measures DVT/VTE Risk/Contraindication: Risk Factor Score Per Nursin RFS Level Per Nursing on Admit: 3=High FOX MENJIVAR MD Oct 26, 2017 08:36
[2017-10-26] MEDS: FLUTICASONE NASAL SPRAY (FLONASE) 16 GM BTL NS SCH (09:17)
[2017-10-26] MEDS: RAMIPRIL 5 MG (ALTACE) CAP PO SCH (09:18)
[2017-10-26] MEDS: meTOproloL SUCCINATE 50 MG (TOPROL XL) TAB PO SCH (09:18)
[2017-10-26] MEDS: OMEPRAZOLE 20 MG (PriLOSEC) CAP PO SCH (09:19)
[2017-10-26] MEDS: SENNA W/DOCUSATE (SENOKOT S) TABLET PO SCH (09:22)
[2017-10-26] MEDS: DOCUSATE SODIUM 100 MG (COLACE) CAP PO SCH (09:22)
[2017-10-26] MEDS: oxyCODONE ER 20 MG (OxyCONTIN CR) TAB PO SCH (09:24)
--- OUTSIDE RECORDS SUMMARY | 2017-10-27 12:46 | XMS REPORT | Continuity of Care Document ---
Author Author [facility] Organization [facility] Address Unknown Phone Unavailable Allergies Active Description Code Type Severity Reaction Onset Reported/Identified Relationship to Patient Clinical Status Yes tolmetin sodium [id number] Drug Allergy Severe ANAPHYLAXIS 02/04/2013 Medications There [...] MD Ot M54.12 RADICULOPATHY, CERVICAL REGION 08/25/2016 NICLOETTE COELHO MD Ot M54.12 RADICULOPATHY, CERVICAL REGION [...] K21.9 GASTRO-ESOPHAGEAL REFLUX DISEASE WITHOUT 04/08/2017 NICOLETTE OCELHO MD, Ot M75.101 UNSP ROTATR-CUFF TEAR/RUPTR OF [...] BACTER 04/22/2017 NICOLETTE COELHO MD, Ot Z79.84 REPAIRER HELPER (CURRENT) USE OF ORAL HYPOGLYC 04/22/2017 NICOLETTE COELHO MD, Ot Z79.891 FDC (CURRENT) USE OF OPIATE ANALGE 04/22/2017 NICOLETTE COELHO MD, Ot Z79.899 OTHER REPAIRER HELPER (CURRENT) DRUG THERAPY 04/22/2017 NICOLETTE COELHO MD, Ot Z88.6 ALLERGY STATUS TO ANALGESIC AGENT STATUS 05/05/2017 NICOLETTE COELHO MD Ot M75.121 COMPLETE ROTATR-CUFF TEAR/RUPTR OF R ANA 07/03/2017 NICOLETTE COELHO MD Ot M75.121 COMPLETE ROTATR-CUFF TEAR/RUPTR OF R ANA 07/08/2017 NICOLETTE COELHO MD Ot M75.121 COMPLETE ROTATR-CUFF TEAR/RUPTR OF R ANA 07/10/2017 NICOLETTE COELHO MD, Ot M54.12 RADICULOPATHY, CERVICAL REGION 07/10/2017 NICOLETTE COELHO MD Ot M75.121 COMPLETE ROTATR-CUFF TEAR/RUPTR OF R ANA 07/10/2017 NICOLETTE COELHO MD Ot M75.121 COMPLETE ROTATR-CUFF TEAR/RUPTR OF R ANA 07/10/2017 NICOLETTE COELHO MD Ot M75.121 COMPLETE ROTATR-CUFF TEAR/RUPTR OF R ANA 07/17/2017 NICOLETTE COELHO MD Ot M75.121 COMPLETE [...] RIGHT UPPER QUADRANT PAIN 10/05/2017 FOX MENJIVAR MD, Ot R10.32 LEFT LOWER QUADRANT PAIN 10/13/2017 NICOLETTE COELHO MD, Ot M75.01 ADHESIVE CAPSULITIS OF RIGHT SHOULDER 10/21/2017 NICOLETTE COELHO MD Ot R22.31 LOCALIZED SWELLING, MASS AND LUMP, RIGHT Procedures There is no data. Results Test [...] Staphylococcus aureus (MRSA) screening culture NEG NRG Complete blood count (CBC) with automated white blood cell (WBC) differential - 10/23/17 23:33 Blood leukocytes automated count (number/volume) 10.1 10*3/uL 4.3-11.0 Blood erythrocytes automated count (number/volume) 4.55 10*6/uL 4.35-5.85 Venous blood hemoglobin measurement (mass/volume) 11.0 g/dL 13.3-17.7 Blood hematocrit (volume fraction) 34 % 40-54 Automated erythrocyte mean corpuscular volume 74 [foz_us] 80-99 Automated erythrocyte mean corpuscular hemoglobin (mass per erythrocyte) 24 pg 25-34 Automated erythrocyte mean corpuscular hemoglobin concentration measurement ( mass/volume) 33 g/dL 32-36 Automated erythrocyte distribution width ratio 15.0 % 10.0-14.5 Automated blood platelet count (count/volume) 404 10*3/uL 130-400 Automated blood platelet mean volume measurement 9.6 [foz_us] 7.4-10.4 Automated blood neutrophils/100 leukocytes 76 % 42-75 Automated blood lymphocytes/100 leukocytes 11 % 12-44 Blood monocytes/100 leukocytes 10 % 0-12 Automated blood eosinophils/100 leukocytes 4 % 0-10 Automated blood basophils/100 leukocytes 0 % 0-10 Blood neutrophils automated count (number/volume) 7.7 10*3 1.8-7.8 Blood lymphocytes automated count (number/volume) 1.1 10*3 1.0-4.0 Blood monocytes automated count (number/volume) 1.0 10*3 0.0-1.0 Automated eosinophil count 0.4 10*3/uL 0.0-0.3 Automated blood basophil count (count/volume) 0.0 10*3/uL 0.0-0.1 PT panel in platelet poor plasma by coagulation assay - 10/23/17 23:33 Prothrombin time (PT) in platelet poor plasma by coagulation assay 14.3 s 12.2-14.7 INR in platelet poor plasma or blood by coagulation assay 1.1 0.8-1.4 Activated partial thromboplastin time (aPTT) in platelet poor plasma bycoagulation assay - 10/23/17 23:33 Activated partial thromboplastin time (aPTT) in platelet poor plasma bycoagulation assay 37 s 24-35 Comprehensive metabolic panel - 10/23/17 23:33 Serum or plasma sodium measurement (moles/volume) 138 mmol/L 135-145 Serum or plasma potassium measurement (moles/volume) 4.1 mmol/L 3.6-5.0 Serum or plasma chloride measurement (moles/volume) 105 mmol/L 98-107 Carbon dioxide 22 mmol/L 21-32 Serum or plasma anion gap determination (moles/volume) 11 mmol/L 5-14 Serum or plasma urea nitrogen measurement (mass/volume) 14 mg/dL 7-18 Serum or plasma creatinine measurement (mass/volume) 0.76 mg/dL 0.60-1.30 Serum or plasma urea nitrogen/creatinine mass ratio 18 NRG Serum or plasma creatinine measurement with calculation of estimated glomerular filtration rate > NRG Serum or plasma glucose measurement (mass/volume) 133 mg/dL 70-105 Serum or plasma calcium measurement (mass/volume) 9.6 mg/dL 8.5-10.1 Serum or plasma total bilirubin measurement (mass/volume) 0.9 mg/dL 0.1-1.0 Serum or plasma alkaline phosphatase measurement (enzymatic activity/volume) 84 U/L 40-136 Serum or plasma aspartate aminotransferase measurement (enzymatic activity/ volume) 17 U/L 5-34 Serum or plasma alanine aminotransferase measurement (enzymatic activity/volume ) 20 U/L 0-55 Serum or plasma protein measurement (mass/volume) 7.1 g/dL 6.4-8.2 Serum or plasma albumin measurement (mass/volume) 4.0 g/dL 3.2-4.5 Magnesium - 10/23/17 23:33 Magnesium 2.1 mg/dL 1.8-2.4 Serum or plasma troponin i.cardiac measurement (mass/volume) - 10/23/17 23:33 Serum or plasma troponin i.cardiac measurement (mass/volume) < ng/ mL <0.30 Serum or plasma lithium measurement (moles/volume) - 10/23/17 23:33 BNP level 17.8 pg/mL <100.0 Myoglobin, serum - 10/23/17 23:33 Myoglobin, serum 34.7 ng/mL 10.0-92.0 Lipid 1996 panel - 10/24/17 05:03 Serum or plasma triglyceride measurement (mass/volume) 100 mg/dL <150 Serum or plasma cholesterol measurement (mass/volume) 150 mg/dL < 200 Serum or plasma cholesterol in HDL measurement (mass/volume) 28 mg/ dL 40-60 Cholesterol in LDL [mass/volume] in serum or plasma by direct assay 100 mg/dL 1-129 Serum or plasma cholesterol in VLDL measurement (mass/volume) 20 mg/ dL 5-40 Methicillin resistant Staphylococcus aureus (MRSA) screening culture - 05:30 Methicillin resistant Staphylococcus aureus (MRSA) screening culture NEG NRG Body fluid cell count - 10/24/17 10:00 Specimen source identification of body fluid PLEURAL NRG Evaluation of color of body fluid RED NRG Determination of appearance of body fluid MKD BLDY NRG Body fluid leukocytes count (number/volume) 22 /uL NRG Body fluid erythrocytes count (number/volume) 222616 /uL NRG Manual body fluid polymorphonuclear cells/100 leukocytes 15 % NRG Manual body fluid mononuclear cells/100 leukocytes 2 % NRG Manual body fluid lymphocytes/100 leukocytes 83 % NRG Other cells/100 leukocytes in body fluid by manual count 0 % NRG Gram stain microscopy - 10/24/17 10:00 GRAM STAIN RESULT FEW WBC'S, NO BACTERIA OBSERVED NRG Bacterial body fluid culture - 10/24/17 10:00 Bacterial body fluid culture NG NR Complete blood count (CBC) with automated white blood cell (WBC) differential - 10/25/17 03:35 Blood leukocytes automated count (number/volume) 7.2 10*3/uL 4.3-11.0 Blood erythrocytes automated count (number/volume) 3.90 10*6/uL 4.35-5.85 Venous blood hemoglobin measurement (mass/volume) 9.6 g/dL 13.3-17.7 Blood hematocrit (volume fraction) 29 % 40-54 Automated erythrocyte mean corpuscular volume 75 [foz_us] 80-99 Automated erythrocyte mean corpuscular hemoglobin (mass per erythrocyte) 25 pg 25-34 Automated erythrocyte mean corpuscular hemoglobin concentration measurement ( mass/volume) 33 g/dL 32-36 Automated erythrocyte distribution width ratio 15.0 % 10.0-14.5 Automated blood platelet count (count/volume) 341 10*3/uL 130-400 Automated blood platelet mean volume measurement 10.0 [foz_us] 7.4-10.4 Automated blood neutrophils/100 leukocytes 67 % 42-75 Automated blood lymphocytes/100 leukocytes 16 % 12-44 Blood monocytes/100 leukocytes 11 % 0-12 Automated blood eosinophils/100 leukocytes 6 % 0-10 Automated blood basophils/100 leukocytes 0 % 0-10 Blood neutrophils automated count (number/volume) 4.8 10*3 1.8-7.8 Blood lymphocytes automated count (number/volume) 1.1 10*3 1.0-4.0 Blood monocytes automated count (number/volume) 0.8 10*3 0.0-1.0 Automated eosinophil count 0.4 10*3/uL 0.0-0.3 Automated blood basophil count (count/volume) 0.0 10*3/uL 0.0-0.1 Whole blood basic metabolic panel - 10/25/17 03:35 Serum or plasma sodium measurement (moles/volume) 136 mmol/L 135-145 Serum or plasma potassium measurement (moles/volume) 3.7 mmol/L 3.6-5.0 Serum or plasma chloride measurement (moles/volume) 104 mmol/L 98-107 Carbon dioxide 23 mmol/L 21-32 Serum or plasma anion gap determination (moles/volume) 9 mmol/L 5-14 Serum or plasma urea nitrogen measurement (mass/volume) 12 mg/dL 7-18 Serum or plasma creatinine measurement (mass/volume) 0.72 mg/dL 0.60-1.30 Serum or plasma urea nitrogen/creatinine mass ratio 17 NRG Serum or plasma creatinine measurement with calculation of estimated glomerular filtration rate > NRG Serum or plasma glucose measurement (mass/volume) 139 mg/dL 70-105 Serum or plasma calcium measurement (mass/volume) 8.8 mg/dL 8.5-10.1 Serum or plasma phosphate measurement (mass/volume) - 10/25/17 03:35 Serum or plasma phosphate measurement (mass/volume) 3.7 mg/dL 2.3-4.7 Magnesium - 10/25/17 03:35 Magnesium 2.0 mg/dL 1.8-2.4 Encounters ACCT No. Visit Date/Time Discharge Status Pt. Type Provider Facility Loc./Unit Complaint [id number] 10/21/2017 13:16:00 10/21/2017 23:59:59 CLS Outpatient NICOLETTE COELHO MD [facility] REHAB R SHOULDER SCOPE; ADHESIVE CAPSULITIS [id number] 10/20/2017 09:44:00 10/20/2017 23:59:59 CLS Outpatient NICOLETTE COELHO MD [facility] RAD RIGHT UPPER EX EDEMA, S/P SHOULDER SCOPE [id number] 10/02/2017 12:56:00 10/02/2017 23:59:59 CLS Outpatient FOX MENJIVAR MD [facility] RAD LUQ PAIN [id number] 07/31/2017 14:53:00 09/01/2017 09:43:00 DIS Outpatient NICOLETTE COELHO MD [facility] REHAB R SHOULDER SCOPE WITH OPEN RCR [id number] 07/08/2017 14:43:00 07/08/2017 00:01:00 DIS Outpatient NICOLETTE COELHO MD [facility] REHAB R SHOULDER SCOPE WITH OPEN RCR [id number] 04/08/2017 10:28:00 04/08/2017 15:13:00 DIS Outpatient NICOLETTE COELHO MD [facility] SDC RIGHT SHOULDER TORN ROTATOR CUFF [id number] 04/06/2017 10:04:00 04/06/2017 10:30:00 DIS Outpatient NICOLETTE COELHO MD [facility] PREOP RIGHT SHOULDER TORN ROTATOR CUFF [id number] 08/02/2016 10:13:00 08/02/2016 23:59:59 CLS Outpatient NICOLETTE COELHO MD [facility] RAD CERVICAL RADICULOPATHY [id number] 02/04/2013 01:41:00 02/04/2013 03:32:00 DIS Emergency RONAL SOLANO, L[place] [facility] ER ALLERGIC RXN [id number] 10/23/2017 23:49:00 Document Registration [id number] 09/15/2016 16:10:00 09/15/2016 23:59:00 DIS Outpatient Jimbo Pace [id number] 06/23/2016 10:16:00 06/23/2016 23:59:00 DIS Outpatient Jimbo Pace [id number] 05/09/2016 11:11:00 05/09/2016 23:59:00 DIS Outpatient Jimbo Pace
== END 2017-10-26 08:13 | disposition home or self-care (01) ==
LOC: EDUNIT# 23:16 → ER 23:17 → ICU 23:18 → UNDOADMOB 10-24 04:30 → ICU 10-25 13:50 → 4TH 10-25 13:50 → UNDODISOB 10-26 13:27
PROVIDERS: ADMIT Internal Medicine; ATTEND Internal Medicine
DX: J93.9 Pneumothorax, unspecified (principal); J90 Pleural effusion, not elsewhere classified; R91.8 Other nonspecific abnormal finding of lung field; M89.9 Disorder of bone, unspecified; R59.0 Localized enlarged lymph nodes; D63.8 Anemia in other chronic diseases classified elsewhere; I10 Essential (primary) hypertension; E78.00 Pure hypercholesterolemia, unspecified; Z79.899 Other long term (current) drug therapy; K21.9 Gastro-esophageal reflux disease without esophagitis; K59.00 Constipation, unspecified; Z79.84 Long term (current) use of oral hypoglycemic drugs; Z87.891 Personal history of nicotine dependence
CPT/HCPCS: 36415; 71045; 71275; 74177; 76604; 80048; 80053; 80061; 83735; 83874; 83880; 84100; 84484; 85025; 85610; 85730; 87070; 87081; 87205; 89051; 93005; 93041; 94640; 94664; 96374; 96375; 96376; G0378

== ENCOUNTER 2017-11-09 08:58 | Outpatient (CLI) | payer MEDICARE, OTHER ==
[~2017-11-09] VITALS: Ht 190.5 cm; Wt 109.1 kg
[2017-11-09] VITALS (12 sets, daily range): BP systolic 143–185; BP diastolic 59–107
[~2017-11-09 08:58] MED LIST changes: +FLUT16SP22 NS; +GABA-486 PO; +IBUP-2055 PO; +OXYC-465 PO; +OXYC-471; +OXYC-471 PO; +TRAM50TA2 PO
[2017-11-09] MEDS ORDERED: LIDOCAINE 1% INJ 20 ML 20 ML VIAL INJ ONE (09:15)
[2017-11-09 09:33] LABS: BASOPHILS % (AUTO) 0 % (0-10); EOSINOPHILS # (AUTO) 0.3 10^3/uL (0.0-0.3); EOSINOPHILS % (AUTO) 3 % (0-10); HEMATOCRIT 33 % (40-54); HEMOGLOBIN 10.9 G/DL (13.3-17.7); LYMPHOCYTES # (AUTO) 1.2 X 10^3 (1.0-4.0); LYMPHOCYTES % (AUTO) 12 % (12-44); MEAN CORPUSCULAR HEMOGLOBIN 24 PG (25-34); MEAN CORPUSCULAR HGB CONC 33 G/DL (32-36); MEAN CORPUSCULAR VOLUME 73 FL (80-99); MEAN PLATELET VOLUME 9.8 FL (7.4-10.4); MONOCYTES # (AUTO) 0.8 X 10^3 (0.0-1.0); MONOCYTES % (AUTO) 9 % (0-12); NEUTROPHILS # (AUTO) 7.5 X 10^3 (1.8-7.8); NEUTROPHILS % (AUTO) 76 % (42-75); PLATELET COUNT 420 10^3/uL (130-400); RED BLOOD COUNT 4.49 10^6/uL (4.35-5.85); RED CELL DISTRIBUTION WIDTH 15.1 % (10.0-14.5); WHITE BLOOD COUNT 9.9 10^3/uL (4.3-11.0)
[2017-11-09 09:45] LABS: PROTHROMBIN TIME PATIENT 13.7 SEC (12.2-14.7)
[2017-11-09] MEDS ORDERED: fentaNYL INJECTION 100 MCG/2 ML AMP ONE (10:09)
[2017-11-09] MEDS ORDERED: MIDAZOLAM 2 MG/2 ML (VERSED) VIAL ONE (10:21)
[2017-11-09] MEDS ORDERED: NS IV 1000 ML 1,000 ML ONE (10:21)
[2017-11-09] MEDS ORDERED: HYDROcodone/APAP 5 MG/325 MG (LORTAB) TAB PO PRN (11:00)
--- NOTE | 2017-11-09 11:37 | Pre-Op Note & Conscious Sedat ---
Pre-Operative Progress Note H&P Reviewed The H&P was reviewed, patient examined and no changes noted. Date H&P Reviewed: Nov 09, 2017 Time H&P Reviewed: 09:00 Pre-Op Diagnosis: Right shoulder mass Conscious Sedation Pre-Proced Time Reviewed: 09:00 ASA Class: 2 Airway Mallampati Classification: ([place] appropriate class) I. II. III, IV Lungs Heart ASA score ASA 1: a normal healthy patient ASA 2: a patient with a mild systemic disease (mid diabetes, controlled hypertension, obesity ASA 3: a patient with a severe systemic disease that limits activity (angina , COPD, prior Myocardial infarction) ASA 4: a patient with an incapacitating disease that is a constant threat to life (CHF, renal failure) ASA 5: a moribund patient not expected to survive 24 hrs. (ruptured aneurysm) ASA 6: a declared brain patient whose organs are being harvested. For emergent operations, add the letter E after the classification Grade 1 Sedation Plan: Analgesia, Amnesia, Plan communicated to team members, Discussed options with patient/fam, Discussed risks with patient/fam Note The patient is an appropriate candidate to undergo the planned procedure, sedation, and anesthesia. The patient immediately re-assessed prior to indication. SHAGUFTA HAND MD Nov 09, 2017 11:37
[2017-11-09] MEDS ORDERED: NS IV 1000 ML 1,000 ML IV STA (11:40)
[2017-11-09] MEDS ORDERED: MIDAZOLAM 2 MG/2 ML (VERSED) VIAL IVP PRN (11:45)
[2017-11-09] MEDS ORDERED: fentaNYL INJECTION 100 MCG/2 ML AMP IVP PRN (11:45)
--- NOTE | 2017-11-09 12:56 | Diagnostic Imaging Report ---
INDICATION: Right scapular mass. Patient presents for CT-guided biopsy. PROCEDURE: Procedure was performed utilizing conscious sedation with radiology nursing and constant monitoring. Total sedation time of 17 minutes was performed. Patient was administered 1 mg of Versed and 100 mcg of fentanyl intravenously during the procedure. Patient was positioned in a left side down decubitus position and axial imaging through the chest was performed. Skin of the right posterior thorax was prepped and draped in usual sterile fashion. Small amount of 1% lidocaine was utilized for local anesthesia. Multiple core biopsies were obtained of the soft tissues immediately posterior to the destructive scapular lesion with 18-gauge coaxial Temno needle. Study is somewhat compromised due to severe patient pain and patient's inability to lie still. Hemostasis was obtained using manual compression. IMPRESSION: CT-guided core biopsy of the right posterior shoulder soft tissues, as described. Conscious sedation was utilized. Pathology results are currently pending. Dictated by: Dictated on workstation # [id number]
== END 2017-11-09 12:55 | disposition home or self-care (01) ==
LOC: SDC 08:58
PROVIDERS: ATTEND Internal Medicine Hematology & Oncology
DX: C40.01 Malignant neoplasm of scapula and long bones of right upper limb (principal)
CPT/HCPCS: 36415; 77012; 85025; 85610; 99155; 99157

== ENCOUNTER → 2017-11-13 | Outpatient (CLI) | payer MEDICARE, OTHER ==
--- NOTE | 2017-11-13 11:49 | Diagnostic Imaging Report ---
INDICATION: Lung cancer with left-sided chest pain and shortness of breath. TIME OF EXAM: 11:50 AM Correlation is made with prior study from 11/05/2017. FINDINGS: The heart size is stable. A small left effusion is similar to prior exam. There is some mild left basilar infiltrate or atelectasis, similar to prior study. Right lung is clear. There is no pneumothorax. Postop changes in cervical spine are noted. IMPRESSION: Stable chest radiograph with a small left effusion with left basilar infiltrate/atelectasis when compared with exam from 11/05/2017. Dictated by: Dictated on workstation # [id number]
== END ==
LOC: RAD 11:22
PROVIDERS: ATTEND Internal Medicine Hematology & Oncology
DX: C34.90 Malignant neoplasm of unspecified part of unspecified bronchus or lung (principal); J90 Pleural effusion, not elsewhere classified
CPT/HCPCS: 71046

== ENCOUNTER → 2017-12-04 | Outpatient (CLI) | payer MEDICARE, OTHER ==
--- NOTE | 2017-12-04 16:20 | Diagnostic Imaging Report ---
INDICATION: Right arm swelling. Jugular, subclavian, axillary, brachial cephalic and basilic veins were patent. Normal compressibility was confirmed. Color flow appeared normal. No deep or superficial thrombus. No mass or fluid collection documented. IMPRESSION: Negative right upper extremity venous thrombus. Dictated by: Dictated on workstation # [id number]
== END ==
LOC: RAD 13:08
PROVIDERS: ATTEND Internal Medicine Hematology & Oncology
DX: M79.89 Other specified soft tissue disorders (principal); I82.90 Acute embolism and thrombosis of unspecified vein

== ENCOUNTER 2018-01-15 13:29 | Outpatient (RCR) | payer MEDICARE, OTHER ==
[~2018-01-15 13:29] MED LIST changes: -FLAX1000 PO; +FLAX10004 PO; +METF-397 PO; -METF500T5 PO; -OXYC-197 PO; +OXYC1TAB87 PO; +RAMI5CAP65 PO
[2018-01-15 14:40] LABS: BASOPHILS % (AUTO) 0 % (0-10); EOSINOPHILS # (AUTO) 0.2 10^3/uL (0.0-0.3); EOSINOPHILS % (AUTO) 2 % (0-10); HEMATOCRIT 30 % (40-54); HEMOGLOBIN 9.3 G/DL (13.3-17.7); LYMPHOCYTES # (AUTO) 0.7 X 10^3 (1.0-4.0); LYMPHOCYTES % (AUTO) 8 % (12-44); MEAN CORPUSCULAR HEMOGLOBIN 22 PG (25-34); MEAN CORPUSCULAR HGB CONC 31 G/DL (32-36); MEAN CORPUSCULAR VOLUME 70 FL (80-99); MEAN PLATELET VOLUME 9.3 FL (7.4-10.4); MONOCYTES # (AUTO) 0.7 X 10^3 (0.0-1.0); MONOCYTES % (AUTO) 8 % (0-12); NEUTROPHILS # (AUTO) 7.3 X 10^3 (1.8-7.8); NEUTROPHILS % (AUTO) 82 % (42-75); PLATELET COUNT 497 10^3/uL (130-400); RED BLOOD COUNT 4.29 10^6/uL (4.35-5.85); RED CELL DISTRIBUTION WIDTH 16.3 % (10.0-14.5); WHITE BLOOD COUNT 8.9 10^3/uL (4.3-11.0)
[2018-01-15 15:07] LABS: ALANINE AMINOTRANSFERASE 18 U/L (0-55); ALBUMIN 3.7 GM/DL (3.2-4.5); ALKALINE PHOSPHATASE 86 U/L (40-136); BILIRUBIN,TOTAL 0.6 MG/DL (0.1-1.0); BUN/CREATININE RATIO 20; CALCIUM 9.4 MG/DL (8.5-10.1); CARBON DIOXIDE 24 MMOL/L (21-32); CHLORIDE 99 MMOL/L (98-107); CREATININE SERUM 0.74 MG/DL (0.60-1.30); GFR ESTIMATED > 60; GLUCOSE 113 MG/DL (70-105); POTASSIUM 4.3 MMOL/L (3.6-5.0); SODIUM 132 MMOL/L (135-145); TOTAL PROTEIN 6.2 GM/DL (6.4-8.2)
[2018-01-25] MEDS ORDERED: METF-397 PO (09:22)
[2018-01-25] MEDS ORDERED: MORP30TA PO (09:22)
[2018-01-25] MEDS ORDERED: MORP60TA39 PO (09:28)
[2018-01-25] MEDS ORDERED: TRAM50TA2 PO (09:28)
[2018-01-25] MEDS ORDERED: OXYC-471 PO (09:28)
== END 2018-03-31 | disposition home or self-care (01) ==
LOC: ONC 13:29
PROVIDERS: ATTEND Internal Medicine Hematology & Oncology
DX: C76.1 Malignant neoplasm of thorax (principal); I89.0 Lymphedema, not elsewhere classified; D50.9 Iron deficiency anemia, unspecified; I10 Essential (primary) hypertension; E11.9 Type 2 diabetes mellitus without complications; Z79.84 Long term (current) use of oral hypoglycemic drugs; Z79.899 Other long term (current) drug therapy; Z77.090 Contact with and (suspected) exposure to asbestos; Z87.891 Personal history of nicotine dependence
CPT/HCPCS: 36415; 80053; 82728; 83540; 84466; 85025; 99213

== ENCOUNTER 2018-01-25 05:42 | Outpatient (CLI) | payer MEDICARE, OTHER ==
[~2018-01-25] VITALS: Ht 190.5 cm; Wt 100.0 kg
[2018-01-25] MEDS ORDERED: MORP30TA PO (09:22)
[2018-01-25] MEDS ORDERED: METF-397 PO (09:22)
[2018-01-25] MEDS ORDERED: TRAM50TA2 PO (09:28)
[2018-01-25] MEDS ORDERED: OXYC-471 PO (09:28)
[2018-01-25] MEDS ORDERED: MORP60TA39 PO (09:28)
== END 2018-01-25 09:30 | disposition home or self-care (01) ==
LOC: PREOP 05:42
PROVIDERS: ATTEND Surgery
DX: Z01.818 Encounter for other preprocedural examination (principal)

== ENCOUNTER → 2018-03-06 | Outpatient (CLI) | payer MEDICARE, OTHER ==
[~2018-03-06] MED LIST changes: +MORP30TA PO; +MORP60TA39 PO
[2018-03-06 22:26] LABS: BILIRUBIN,URINE 2+ (NEGATIVE); CLARITY,URINE SLIGHTLY CLOUDY; GLUCOSE, URINE (UA) NEGATIVE (NEGATIVE); KETONES,URINE NEGATIVE (NEGATIVE); LEUKOCYTE ESTERASE ,URINE 3+ (NEGATIVE); NITRITE,URINE POSITIVE (NEGATIVE); PH,URINE 6 (5-9); PROTEIN,URINE 2+ (NEGATIVE); UROBILINOGEN,URINE 8 MG/DL (NORMAL)
[2018-03-06 22:45] LABS: BACTERIA,URINE LARGE /HPF; COLOR,URINE ORANGE; WBC,URINE TNTC /HPF
== END ==
LOC: HOSHH 22:17
PROVIDERS: ATTEND Internal Medicine
DX: R82.998 Other abnormal findings in urine (principal)
CPT/HCPCS: 81000; 87077; 87088; 87186